=== PATIENT | male | born 1960 | race Caucasian/White ===

== ENCOUNTER 2017-03-31 22:38 | Observation (INO) | payer MEDICAID ==
[~2017-03-31] VITALS: Ht 172.7 cm; Wt 73.7 kg
[~2017-03-31 22:38] MED LIST: ASPIRIN 325MG325 MG PO; ASPIRIN 81MG TA81 MG PO; CARVEDILOL3.125 MG PO; CLARITIN 10MG T10 MG PO; EFFIENT10 M2 PO; ETODOLAC400 MG PO; LEVAQUIN500 MG PO; LIPITOR40 M1 PO; LISINOPRIL2.5 MG PO; MECLIZINE25 MG PO; NOMEDS; PERCOCET 5/3251 EACH PO; PHENERGAN 25MG.25 M1 PO; PROTONIX40 MG/PACK PO; TAMIFLU 75MG CA75 MG PO
[2017-03-31 22:40] VITALS: BP 122/56
[2017-03-31] MEDS ORDERED: BUPROPION HYDR150 M1 PO (22:48)
--- OUTSIDE RECORDS SUMMARY | 2017-03-31 22:49 | External Medical Summary Rpt ---
Demographics Preferred Language Kosovan Marital Status Unknown Zoroastrian Affiliation Unknown Race Unknown Ethnic Group Unknown Author Author SUZANNE Address Unknown Phone Immunization No patient found.
--- OUTSIDE RECORDS SUMMARY | 2017-03-31 22:49 | External Medical Summary Rpt ---
Author Author , SUZANNE PALACIOS Address Unknown Phone [email or web address] Care Team Providers Care Arch Support Technician Name Role Phone A Lui ARNOLD MD PSC, Sami Unavailable Unavailable Lui ARNOLD MD PSC [facility] Unavailable Unavailable INC, [facility] Unavailable Unavailable [facility], [facility] LESLY JR DWI, LESLY Unavailable Unavailable JR DWI [facility], Unavailable Unavailable PLL[facility], [facility] CURT ELDRIDGE, Unavailable Unavailable CURT ARNOLD BUCKY, CATALINA Unavailable Unavailable BUCKY Purpose Continuity of Care Document - 02-24-2016 through 2016 Problems Code Diagnosis DOS Provider Status K210 GASTRO-ESOP 05-14-2016 [facility] DISEASE W/ ESOPHAGITIS N200 CALCULUS OF 05-14-2016 [facility] R079 CHEST PAIN 05-14-2016 [facility] R109 UNSPECIFIED 05-14-2016 [facility] [id number] PAIN IN 05-12-2016 A Lui BAH MD PSC SHOULDER M778 OTHER 05-12-2016 A Lui ARNOLD ENTHLEILA MAURICIO PSC IES NOT ELSEWHERE CLASSIFIED [id number] PAIN IN 05-12-2016 A Lui BAH FOOT PSC R0789 OTHER CHEST 02-24-2016 [facility] [id number] FRACTURE 02-24-2016 [facility] ONE RIB [facility], RIGHT PLLC INITIAL ENCNTR CLOSED FX Procedures Procedure DOS Code Location Performer Comment UNCLASSIF J3490 [facility] IED DRUGS 6 [facility] INC INC RADIOLOGI 99042 [facility] C EXAM 6 [facility] CHEST 2 INC INC VIEWS FRONTAL&L ATERAL ECG 03124 [facility] GRACE JR ROUTINE 6 [facility] W/LEAST P 12 LDS I&[place] [address] [facility] TROPONIN 6 [facility] QUANTITAT INC INC LILLY BLOOD 45363 [facility] COUNT 6 [facility] COMPLETE INC INC AUTO&[place] [address] [facility] INFUSION 6 [facility] THERAPY/P INC INC ROPHYLAXI S /DX 1ST TO 1 HR THERAPEUT 11612 [facility] IC 6 [facility] INJECTION INC INC IV PUSH EACH NEW DRUG ECG 93252 [facility] ROUTINE 6 [facility] ECG INC INC W/LEAST 12 LDS TRCG ONLY W/O I&R CREATINE 49774 [facility] KINASE 6 [facility] [place] [address] [facility] LIPASE 6 [facility] INC INC RADEX 75230 [facility] ABDOMEN 6 [facility] COMPL INC INC W/DCBTS&/ ERC VIEWS COMPREHEN 47383 [facility] SIVE 6 [facility] [place] [address] G[facility] AMYLASE 6 [facility] INC INC CREATINE 79541 [facility] KINASE MB 6 [facility] FRACTION INC INC ONLY RADEX 91236 [facility] RIBS UNI 6 [facility] W/POSTERO INC INC ANT CH MINIMUM 3 VIEWS Encounters Encounter Start End Date Code Location Performer Type Date [facility] - 6 6 [facility] OUTPATIEN INC T EMERGENCY 86770 [facility] 6 6 [facility] DEPARTMEN INC T VISIT HIGH/URGE NT SEVERITY OFFICE 29169 Sami ARNOLD OUTPATI 6 6 [place]ALINA LAWLER T VISIT PSC 15 MINUTES EMERGENCY 23738 [facility] 6 6 [facility] DEPARTMEN INC T VISIT LOW/MODER SEVERITY EMERGENCY 63501 [facility] 6 6 PHYSICIAN U [facility] PLL[facility] T VISIT HIGH/URGE NT SEVERITY HOSPITAL [facility] - 6 6 [facility] OUTPATIEN INC T
--- OUTSIDE RECORDS SUMMARY | 2017-03-31 22:49 | External Medical Summary Rpt ---
Author Author , SUZANNE PALACIOS Address Unknown Phone [email or web address] Care Team Providers Care Manuscripts Archivist Name Role Phone A Lui ARNOLD MD PSC, A Unavailable Unavailable Lui ARNOLD MD [facility] OCASIO Unavailable Unavailable CHENTE SANTOS ALL, SANTOS ALL Unavailable Unavailable JR MARK RITTER, Unavailable Unavailable JR MARK RITTER [facility] Unavailable Unavailable INC, [facility] Unavailable Unavailable IM[facility]ING [facility], [facility] LESLY JR DWI, LESLY Unavailable Unavailable JR DWI [facility], Unavailable [facility]available PLL[facility], [facility] CURT ELDRIDGE, Unavailable Unavailable CURT ARNOLD BUCKY, CATALINA Unavailable Unavailable BUCKY Purpose Continuity of Care Document - 02-24-2016 through 2016 Problems Code Diagnosis DOS Provider Status K210 GASTRO-ESOP 05-14-2016 [facility] DISEASE W/ ESOPHAGITIS N200 CALCULUS OF 05-14-2016 [facility] R079 CHEST PAIN 05-14-2016 [facility] R109 UNSPECIFIED 05-14-2016 [facility] [id number] PAIN IN 05-12-2016 A Lui BAH MD [facility] SHOULDER M778 OTHER 05-12-2016 A Lui ARNOLD ENTHESOPATH [facility] IES NOT ELSEWHERE CLASSIFIED [id number] PAIN IN 05-12-2016 A Lui BAH FOOT [facility] R0789 OTHER CHEST 02-24-2016 [facility] [id number] FRACTURE 02-24-2016 [facility] ONE RIB [facility]YS[facility], RIGHT PLLC INITIAL ENCNTR CLOSED FX J44.9 CHRONIC OBSTRUCTIVE PULMONARY DISEASE, UNSPECIFIED K21.9 GASTRO-ESOP [facility] DISEASE WITHOUT ESOPHAGITIS R07.9 CHEST PAIN, UNSPECIFIED R91.1 SOLITARY PULMONARY NODULE S22.31XA FRACTURE OF ONE RIB, RIGHT SIDE, INIT FOR CLOS FX Z72.0 TOBACCO USE Procedures Procedure DOS Code Location Performer Comment COMPREHEN 28727 [facility] SIVE 6 [facility] [place] [address] [facility] AMYLASE 6 [facility] INC INC CREATINE 65665 [facility] KINASE MB 6 [facility] FRACTION INC INC ONLY RADEX 69178 [facility] SANTOS ALL ABDOMEN 6 MEDICAL COMPL IMAGING W/DCBTS&/ ASS ERC VIEWS CREATINE 63131 [facility] KINASE 6 [facility] [place] [address] [facility] LIPASE 6 [facility] INC INC ECG 06751 [facility] MACI[facility] ROUTINE 6 [facility] ECG INC INC W/LEAST 12 LDS TRCG ONLY W/O I&R UNCLASSIF J3490 [facility] IED DRUGS 6 [facility] [place] [address] [facility] MAC[facility] TROPONIN 6 [facility] QUANTITAT INC INC LILLY BLOOD 63310 [facility] MAC[facility] COUNT 6 [facility] COMPLETE INC INC AUTO&[place] [address] [facility] MACIAS INFUSION 6 [facility] THERAPY/P INC INC ROPHYLAXI S /DX 1ST TO 1 HR THERAPEUT 98206 [facility] IC 6 [facility] INJECTION INC INC IV PUSH EACH NEW DRUG RADIOLOGI 76794 [facility] MACIAS C EXAM 6 [facility] CHEST 2 INC INC VIEWS FRONTAL&L ATERAL ECG 37677 [facility] GRACE JR ROUTINE 6 [facility] W/LEAST P 12 LDS I&R ONLY RADEX 98328 [facility] BEINEKE RIBS UNI 6 [facility] W/POSTERO IMAGING ANT CH ASS MINIMUM 3 VIEWS Encounters Encounter Start End Date Code Location Performer Type Date EMERGENCY 64653 CHANDRA RITTER 6 6 PHYSICIAN JR MARK HANSON S, PLLC T VISIT HIGH/URGE NT SEVERITY HOSPITAL [facility] Miguel 6 6 [facility] OUTPATIEN INC T OFFICE 33592 Sami ROBISONPATICHRIS 6 6 [place] MAURICIO BUCKY T VISIT PSC 15 MINUTES [facility]OSPITAL [facility] 70268 [facility] 6 6 PHYSICIAN VALERIE HARMON T VISIT HIGH/URGE NT SEVERITY EMERGENCY 18834 [facility] 6 6 [facility] T VISIT LOW/MODER SEVERITY
--- OUTSIDE RECORDS SUMMARY | 2017-03-31 22:49 | External Medical Summary Rpt ---
Author Author , SUZANNE PALACIOS Address Unknown Phone [facility] Care Team Providers Care Finished Yarn Examiner Name Role Phone A Lui ARNOLD MD PSC, A Unavailable Unavailable Lui ARNOLD MD [facility] REMY OCASIO Unavailable Unavailable CHENTE SANTOS ALL, SANTOS ALL Unavailable Unavailable JR MARK RITTER, Unavailable Unavailable JR MARK RITTER [facility] Unavailable Unavailable INC, [facility] Unavailable Unavailable IM[facility]ING [facility], [facility] LESLY JR DWI, LESLY Unavailable Unavailable JR DWI [facility], Unavailable Unavailable PLLC, [facility] CURT ELDRIDGE, Unavailable Unavailable CURT ARNOLD BUCKY, CATALINA Unavailable Unavailable BUCKY Purpose Continuity of Care Document - 02-24-2016 through 2016 Problems Code Diagnosis DOS Provider Status K210 GASTRO-ESOP 05-14-2016 [facility] DISEASE W/ ESOPHAGITIS N200 CALCULUS OF 05-14-2016 [facility] R079 CHEST PAIN 05-14-2016 [facility] R109 UNSPECIFIED 05-14-2016 [facility] [id number] PAIN IN 05-12-2016 A Lui BAH MD [facility] SHOULDER M778 OTHER 05-12-2016 A Lui ARNOLD ENTHESOPATH [facility] IES NOT ELSEWHERE CLASSIFIED [id number] PAIN IN 05-12-2016 A Lui BAH FOOT [facility] R0789 OTHER CHEST 02-24-2016 [facility] [id number] FRACTURE 02-24-2016 [facility] ONE RIB PHYSICIANS, RIGHT PLLC INITIAL ENCNTR CLOSED FX J44.9 CHRONIC OBSTRUCTIVE PULMONARY DISEASE, UNSPECIFIED K21.9 GASTRO-ESOP [facility] RE[facility]UX DISEASE WITHOUT ESOPHAGITIS R07.9 CHEST PAIN, UNSPECIFIED R91.1 SOLITARY PULMONARY NODULE S22.31XA FRACTURE OF ONE RIB, RIGHT SIDE, INIT FOR CLOS FX Z72.0 TOBACCO USE Procedures Procedure DOS Code Location Performer Comment COMPREHEN 92887 [facility] SIVE 6 [facility] [place] [address] [facility] AMYLASE 6 [facility] INC INC CREATINE 42920 [facility] MACIAS KINASE MB 6 [facility] FRACTION INC INC ONLY RADEX 12894 [place] SANTOS ALL ABDOMEN 6 MEDICAL COMPL IMAGING W/DCBTS&/ ASS ERC VIEWS CREATINE 91546 [facility] KINASE 6 [facility] [place] [address] [facility] LIPASE 6 [facility] INC INC ECG 82863 [facility] MACIAS ROUTINE 6 [facility] ECG INC INC W/LEAST 12 LDS TRCG ONLY W/O I&R UNCLASSIF J3490 [facility] IED DRUGS 6 [facility] [place] [address] [facility] MACIAS TROPONIN 6 [facility] QUANTITAT INC INC LILLY BLOOD 80035 [facility] MACI[facility] COUNT 6 [facility] COMPLETE INC INC AUTO&[place] [address] [facility] MACIAS INFUSION 6 [facility] THERAPY/P INC INC ROPHYLAXI S /DX 1ST TO 1 HR THERAPEUT 85724 [facility] MACIAS IC 6 [facility] INJECTION INC INC IV PUSH EACH NEW DRUG RADIOLOGI 28292 [facility] MACIAS C EXAM 6 [facility] CHEST 2 INC INC VIEWS FRONTAL&L ATERAL ECG 38043 [facility] GRACE JR ROUTINE 6 [facility] W/LEAST P 12 LDS I&R ONLY RADEX 27917 [place] BEINEKE RIBS UNI 6 [facility] W/POSTERO IMAGING ANT CH ASS MINIMUM 3 VIEWS Encounters Encounter Start End Date Code Location Performer Type Date EMERGENCY 19621 CHANDRA RITTER 6 6 PHYSICIAN JR MARK HANSON S, PLLC T VISIT HIGH/URGE NT SEVERITY HOSPITAL [facility] Miguel 6 6 [facility] OUTPATIEN INC T OFFICE 88384 Sami ROBISONPATICHRIS 6 6 [place] MAURICIO BUCKY T VISIT PSC 15 MINUTES [facility]OSPITAL [facility] 20159 [facility] 6 6 PHYSICIAN VALERIE HARMON T VISIT HIGH/URGE NT SEVERITY EMERGENCY 53292 [facility] 6 6 [facility] T VISIT LOW/MODER SEVERITY
--- OUTSIDE RECORDS SUMMARY | 2017-03-31 22:49 | External Medical Summary Rpt ---
Demographics Preferred Language Nigerian Marital Status Unknown Lutheran Affiliation Unknown Race Unknown Ethnic Group Unknown Author Author SUZANNE Address Unknown Phone Immunization No patient found.
--- OUTSIDE RECORDS SUMMARY | 2017-03-31 22:49 | External Medical Summary Rpt ---
Author Author , SUZANNE PALACIOS Address Unknown Phone [email or web address] Care Team Providers Care Concrete Mixer Operator Helper Name Role Phone A Lui ARNOLD MD PSC, Sami Unavailable Unavailable Lui ARNOLD MD PSC [facility] Unavailable Unavailable INC, [facility] Unavailable Unavailable IM[facility]ING [facility], [facility] LES[facility] JR DWI, LESLY Unavailable Unavailable JR DWI [facility], Unavailable Unavailable PLL[facility], [facility] CURT ELDRIDGE, Unavailable Unavailable CURT ARNOLD BUCKY, CATALINA Unavailable Unavailable BUCKY Purpose Continuity of Care Document - 02-24-2016 through 2016 Problems Code Diagnosis DOS Provider Status K210 GASTRO-ESOP 05-14-2016 [facility] DISEASE W/ ESOPHAGITIS N200 CALCULUS OF 05-14-2016 [facility] R079 CHEST PAIN 05-14-2016 [facility] R109 UNSPECIFIED 05-14-2016 [facility] [id number] PAIN IN 05-12-2016 A Lui BAH MD [facility] SHOULDER M778 OTHER 05-12-2016 A Lui ARNOLD ENTHLEILA MAURICIO PSC IES NOT ELSEWHERE CLASSIFIED [id number] PAIN IN 05-12-2016 A Lui BAH FOOT [facility] R0789 OTHER CHEST 02-24-2016 [facility] [id number] FRACTURE 02-24-2016 [facility] ONE RIB PHYSICIANS, RIGHT PLLC INITIAL ENCNTR CLOSED FX Procedures Procedure DOS Code Location Performer Comment UNCLASSIF J3490 [facility] IED DRUGS 6 [facility] INC INC RADIOLOGI 90575 [facility] C EXAM 6 [facility] CHEST 2 INC INC VIEWS FRONTAL&L ATERAL ECG 00436 [facility] GRACE JR ROUTINE [address] [facility] W/LEAST P 12 LDS I&[place] [address] [facility] TROPONIN 6 [facility] QUANTITAT INC INC LILLY BLOOD 91895 [facility] COUNT 6 [facility] COMPLETE INC INC AUTO&[place] [address] [facility] INFUSION 6 [facility] THERAPY/P INC INC ROPHYLAXI S /DX 1ST TO 1 HR THERAPEUT 52036 [facility] IC 6 [facility] INJECTION INC INC IV PUSH EACH NEW DRUG ECG 17681 [facility] ROUTINE 6 [facility] ECG INC INC W/LEAST 12 LDS TRCG ONLY W/O I&R CREATINE 43953 [facility] KINASE 6 [facility] [place] [address] [facility] LIPASE 6 [facility] INC INC RADEX 58318 [facility] ABDOMEN 6 [facility] COMPL INC INC W/DCBTS&/ ERC VIEWS COMPREHEN 92043 [facility] SIVE 6 [facility] [place] [address] G[facility] AMYLASE 6 [facility] INC INC CREATINE 96653 [facility] KINASE MB 6 [facility] FRACTION INC INC ONLY RADEX 90494 [facility] RIBS UNI 6 [facility] W/POSTERO INC INC ANT CH MINIMUM 3 VIEWS Encounters Encounter Start End Date Code Location Performer Type Date [facility] - 6 6 [facility] OUTPATIEN INC T EMERGENCY 73839 [facility] 6 6 [facility] DEPARTMEN INC T VISIT HIGH/URGE NT SEVERITY OFFICE 82724 Sami ARNOLD OUTPATI 6 6 [place] LAWLER T VISIT PSC 15 MINUTES EMERGENCY 01486 [facility] 6 6 [facility] DEPARTMEN INC T VISIT LOW/MODER SEVERITY EMERGENCY 69735 [facility] 6 6 PHYSICIAN U [facility] T VISIT HIGH/URGE NT SEVERITY HOSPITAL [facility] - 6 6 [facility] OUTPATIEN INC T
--- OUTSIDE RECORDS SUMMARY | 2017-03-31 22:50 | External Medical Summary Rpt ---
Author Author SUZANNE Callahan, LOUISEJACOB [employer] Organization [employer] Address Unknown Phone Unavailable Results Lipid 1996 panel in Serum or Plasma Observa Value Referen Units Interpr Notes Date tion ce etation Range Cholester < 200 mg/dL No No Mar 18 ol informati informati 2016 5:40 [Moles/vo on in on in AM lume] in source source Unspecifi data data ed specimen Cholester 40 - 60 MG/DL Low No Mar 18 ol in HDL informati 2016 5:40 on in AM [Mass/vol source ume] in data Serum or Plasma Cholester 0 - 130 mg/dL Normal No Mar 18 ol in LDL informati 2016 5:40 on in AM [Mass/vol source ume] in data Serum or Plasma by ny on Triglycer 30 - 200 mg/dL Normal No Mar 18 henrry informati 2016 5:40 [Moles/vo on in AM lume] in source Serum or data Plasma Cholester 0 - 40 No Normal No Mar 18 ol in informati informati 2016 5:40 VLDL on in on in AM [Mass/vol source source ume] in data data Serum or Plasma Basic metabolic panel in Blood Observa Value Referen Units Interpr Notes Date tion ce etation Range Urea 7 - 18 mg/dL Normal No Mar 18 nitrogen informati 2016 5:40 [Mass/vol on in AM ume] in source Serum or data Plasma Calcium 8.5 - mg/dL Normal No Mar 18 [Mass/vol 10.1 informati 2016 5:40 ume] in on in AM Serum or source Plasma data Chloride 98 - 107 mmoL/L Normal No Mar 18 [Moles/vo informati 2016 5:40 lume] in on in AM Serum or source Plasma data Carbon 21.0 - mmoL/L Normal No Mar 18 dioxide, 32.0 informati 2016 5:40 total on in AM [Moles/vo source lume] in data Serum or Plasma Creatinin 0.70 - mg/dL Normal No Mar 18 e 1.30 informati 2016 5:40 [Mass/vol on in AM ume] in source Serum or data Plasma Creatinin 50 - 200 ML/MIN Normal No Mar 18 e renal informati 2016 5:40 clearance on in AM source predicted data by Cockcroft -Gault formula Estimated >60 ML/MIN No REFERENCE Mar 18 informati RANGE: 2017 5:40 glomerula on in >60 AM r source ML/MIN/1. filtratio data 73 SQUARE n rate METERSIf (GF this patient is -A merican, then multiply theresult by 1.210. Glucose 74 - 106 mg/dL Normal No Mar 18 [Mass/vol informati 2016 5:40 ume] in on in AM Serum or source Plasma data Potassium 3.5 - 5.1 mmoL/L Normal No Mar 18 informati 2016 5:40 [Moles/vo on in AM lume] in source Serum or data Plasma Sodium 136 - 145 mmoL/L Normal No Mar 18 [Moles/vo informati 2016 5:40 lume] in on in AM Serum or source Plasma data CBC W Auto Differential panel in Blood Observa Value Referen Units Interpr Notes Date tion ce etation Range Basophils 0 - 0.2 K/MM3 Normal No Mar 18 informati 2016 5:40 [#/volume on in AM ] in source Blood by data Automated count Basophils 0.1 - 2.0 % Normal No Mar 18 informati 2016 5:40 leukocyte on in AM s in source Blood by data Automated count Eosinophi 0.0 - 0.4 K/mm3 Normal No Mar 18 ls informati 2016 5:40 [#/volume on in AM ] in source Blood by data Automated count Eosinophi 0.1 - % Normal No Mar 18 ls/100 12.0 informati 2016 5:40 leukocyte on in AM s in source Blood by data Automated count Granulocy 1.3 - 8.0 K/mm3 Normal No Mar 18 evelyne informati 2016 5:40 [#/volume on in AM ] in source Blood by data Automated count Granulocy 37.0 - % Normal No Mar 18 evelyne/100 80.0 informati 2016 5:40 leukocyte on in AM s in source Blood by data Automated count Hematocri 42.0 - % Low No Mar 18 t [Volume 52.0 informati 2016 5:40 on in AM Fraction] source of Blood data Hemoglobi 14.1 - g/dL Low No Mar 18 n 18.0 informati 2016 5:40 [Mass/vol on in AM ume] in source Blood data Lymphocyt 0.7 - 4.5 K/mm3 Normal No Mar 18 es informati 2016 5:40 [#/volume on in AM ] in source Unspecifi data ed specimen by Automated count Lymphocyt 10 - 50 % Normal No Mar 18 es informati 2016 5:40 [#/volume on in AM ] in source Unspecifi data ed specimen by Automated count Erythrocy 27 - 31.2 pg Normal No Mar 18 te mean informati 2016 5:40 corpuscul on in AM ar source hemoglobi data n [Entitic mass] Erythrocy 31.8 - g/dl Normal No Mar 18 te mean 35.4 informati 2016 5:40 corpuscul on in AM ar source hemoglobi data n concentra tion [Mass/vol ume] by Automated count Erythrocy 82.2 - fl Normal No Mar 18 te mean 97.8 informati 2016 5:40 corpuscul on in AM ar volume source [Entitic data volume] by Automated count Monocytes 0.1 - 1.0 K/mm3 Normal No Mar 18 informati 2016 5:40 [#/volume on in AM ] in source Blood by data Automated count Monocytes 1.7 - 9.3 % Normal No Mar 18 /100 informati 2016 5:40 leukocyte on in AM s in source Blood by data Automated count Platelet 7.4 - fl Normal No Mar 18 mean 10.4 informati 2016 5:40 volume on in AM [Entitic source volume] data in Blood by Automated count Platelets 142 - 424 K/mm3 Normal No Mar 18 informati 2016 5:40 [#/volume on in AM ] in source Blood data Erythrocy 4.6 - 6.2 M/mm3 Low No Mar 18 evelyne informati 2016 5:40 [#/volume on in AM ] in source Amniotic data fluid Erythrocy 11.5 - % Normal No Mar 18 te 17.5 informati 2016 5:40 distribut on in AM ion width source [Entitic data volume] by Automated count Leukocyte 4.8 - K/MM3 Normal No Mar 18 s 10.8 informati 2016 5:40 [#/volume on in AM ] in source Blood data Cardiac enzymes Observa Value Referen Units Interpr Notes Date tion ce etation Range Creatine 0 - 4.0 U/L No No Mar 17 kinase.MB informati informati 2017 6:50 /Creatine on in on in PM source source kinase.to data data damaris [Ratio] in Serum or Plasma Creatine 0.0 - 3.6 ng/mL No No Mar 17 kinase.MB informati informati 2017 6:50 on in on in PM [Mass/vol source source ume] in data data Serum or Plasma Creatine 39 - 308 U/L Normal No Mar 17 kinase informati 2017 6:50 [Enzymati on in PM c source activity/ data volume] in Serum or Plasma Troponin 0.00 - ng/mL High Mar 17 I.cardiac 0.06 2016 6:50 CRITICAL PM [Mass/vol RESULTS ume] in Serum or RESU Plasma LTS CALLED TO: CALIN.BRYCE 03/17/171943 Arnoldo,[place] nda> 0.5 IS CONSISTEN T WITH MYOCARDIA L ISCHEMIA OR INFARCTIO N Activated clotting time in Blood by Coagulation assay Observa Value Referen Units Interpr Notes Date tion ce etation Range Activated 74 - 125 SEC High No Mar 17 clotting alert informati 2017 3:43 time in on in PM Blood by source Coagulati data on assay Cardiac enzymes Observa Value Referen Units Interpr Notes Date tion ce etation Range Creatine 0 - 4.0 U/L Normal No Mar 17 kinase.MB informati 2016 /Creatine on in 12:40 PM source kinase.to data damaris [Ratio] in Serum or Plasma Creatine 0.0 - 3.6 ng/mL No No Mar 17 kinase.MB informati informati 2017 on in on in 12:40 PM [Mass/vol source source ume] in data data Serum or Plasma Creatine 39 - 308 U/L Normal No Mar 17 kinase informati 2017 [Enzymati on in 12:40 PM c source activity/ data volume] in Serum or Plasma Troponin 0.00 - ng/mL High 0.04 - Mar 17 I.cardiac 0.06 0.49 IS 2017 AN 12:40 PM [Mass/vol INDETERMI ume] in NANT Serum or ZONEAnd Plasma can be consisten t with the following diseases: Trauma Criticall y ill patients Alves >30% TBSACHF Hypothyro idism Amyloidos isHyperte nsion Myocardit is SepsisHyp otension Rhabdomyo lysis Vital exhaust.P ostop surgery Pulmonary embolism CVARenal failure Acute neurologi moon disease Atrial fib. Natriutietic peptide B [Mass/volume] in Serum or Plasma Observa Value Referen Units Interpr Notes Date tion ce etation Range Natriutie 0 - 100 pg/mL Normal No Mar 17 tic informati 2016 9:25 peptide B on in AM source [Mass/vol data ume] in Serum or Plasma Creatine kinase.MB [Mass/volume] in Serum or Plasma Observa Value Referen Units Interpr Notes Date tion ce etation Range Creatine 0.0 - 3.6 ng/mL Normal No Mar 17 kinase.MB informati 2016 9:25 on in AM [Mass/vol source ume] in data Serum or Plasma Comprehensive metabolic 2000 panel in Serum or Plasma Observa Value Referen Units Interpr Notes Date tion ce etation Range Albumin/G 1.1 - 1.8 No Low No Mar 17 lobulin informati informati 2016 9:25 [Mass on in on in AM ratio] in source source Serum or data data Plasma Albumin 3.4 - 5.0 gm/dL Normal No Mar 17 [Mass/vol informati 2016 9:25 ume] in on in AM Serum or source Plasma data Alkaline 46 - 116 U/L Normal No Mar 17 phosphata informati 2016 9:25 se on in AM [Enzymati source c data activity/ volume] in Serum or Plasma Bilirubin 0.2 - 1.0 mg/dL Normal No Mar 17 .total informati 2016 9:25 [Mass/vol on in AM ume] in source Serum or data Plasma Urea 7 - 18 mg/dL Normal No Mar 17 nitrogen informati 2016 9:25 [Mass/vol on in AM ume] in source Serum or data Plasma Calcium 8.5 - mg/dL Normal No Mar 17 [Mass/vol 10.1 informati 2016 9:25 ume] in on in AM Serum or source Plasma data Chloride 98 - 107 mmoL/L Normal No Mar 17 [Moles/vo informati 2016 9:25 lume] in on in AM Serum or source Plasma data Carbon 21.0 - mmoL/L Normal No Mar 17 dioxide, 32.0 informati 2016 9:25 total on in AM [Moles/vo source lume] in data Serum or Plasma Creatinin 0.70 - mg/dL Normal No Mar 17 e 1.30 informati 2016 9:25 [Mass/vol on in AM ume] in source Serum or data Plasma Creatinin 50 - 200 ML/MIN Normal No Mar 17 e renal informati 2016 9:25 clearance on in AM source predicted data by Cockcroft -Gault formula Estimated >60 ML/MIN No REFERENCE Mar 17 informati RANGE: 2017 9:25 glomerula on in >60 AM r source ML/MIN/1. filtratio data 73 SQUARE n rate METERSIf (GF this patient is -A merican, then multiply theresult by 1.210. Globulin 1.3 - 3.2 gm/dL High No Mar 17 [Mass/vol informati 2016 9:25 ume] in on in AM Serum source data Glucose 74 - 106 mg/dL High No Mar 17 [Mass/vol informati 2016 9:25 ume] in on in AM Serum or source Plasma data Potassium 3.5 - 5.1 mmoL/L Normal No Mar 17 informati 2016 9:25 [Moles/vo on in AM lume] in source Serum or data Plasma Sodium 136 - 145 mmoL/L Normal No Mar 17 [Moles/vo informati 2016 9:25 lume] in on in AM Serum or source Plasma data Aspartate 15 - 37 U/L Low No Mar 17 informati 2016 9:25 aminotran on in AM sferase source [Enzymati data c activity/ volume] in Serum or Plasma Alanine 12 - 78 U/L Normal No Mar 17 aminotran informati 2016 9:25 sferase on in AM [Enzymati source c data activity/ volume] in Serum or Plasma Protein 6.4 - 8.2 gm/dL Normal No Mar 17 [Mass/vol informati 2016 9:25 ume] in on in AM Serum or source Plasma data Creatine kinase [Enzymatic activity/volume] in Serum or Plasma Observa Value Referen Units Interpr Notes Date tion ce etation Range Creatine 39 - 308 U/L Normal No Mar 17 kinase informati 2016 9:25 [Enzymati on in AM c source activity/ data volume] in Serum or Plasma Troponin I.cardiac [Mass/volume] in Serum or Plasma Observa Value Referen Units Interpr Notes Date tion ce etation Range Troponin 0.00 - ng/mL Normal No Mar 17 I.cardiac 0.06 informati 2016 9:25 on in AM [Mass/vol source ume] in data Serum or Plasma Fibrin D-dimer FEU [Mass/volume] in Platelet poor plasma Observa Value Referen Units Interpr Notes Date tion ce etation Range Fibrin 0 - 400 ng/mL High Mar 17 D-dimer alert NOTIFICAT 2016 9:25 FEU ION AM [Mass/vol RESULT ume] in The Platelet D-Dimer poor values plasma are presented in units of mass(ng/m L) ofD-Dimer units(DDU ).This test has been FDA approved as an aid in the assessmen tand evaluatio n of suspected DIC, and thromboem bolic eventsinc luding PE and DVT. However, it does not have approvalf or cut-off values for the exclusion of these condition s. Amylase [Enzymatic activity/volume] in Serum or Plasma Observa Value Referen Units Interpr Notes Date tion ce etation Range Amylase 25 - 115 U/L Normal No Mar 17 [Enzymati informati 2016 9:25 c on in AM activity/ source volume] data in Serum or Plasma Lipase [Enzymatic activity/volume] in Serum or Plasma Observa Value Referen Units Interpr Notes tion ce etation Range Lipase 73 - 393 U/L Normal No Mar 17 [Enzymati informati 2016 9:25 c on in AM activity/ source volume] data in Serum or Plasma CBC W Auto Differential panel in Blood Observa Value Referen Units Interpr Notes Date tion ce etation Range Basophils 0 - 0.2 K/MM3 Normal No Mar 17 informati 2016 9:25 [#/volume on in AM ] in source Blood by data Automated count Basophils 0.1 - 2.0 % Normal No Mar 17 / informati 2016 9:25 leukocyte on in AM s in source Blood by data Automated count Eosinophi 0.0 - 0.4 K/mm3 Normal No Mar 17 ls informati 2016 9:25 [#/volume on in AM ] in source Blood by data Automated count Eosinophi 0.1 - % Normal No Mar 17 ls/100 12.0 informati 2016 9:25 leukocyte on in AM s in source Blood by data Automated count Granulocy 1.3 - 8.0 K/mm3 Normal No Mar 17 evelyne informati 2017 9:25 [#/volume on in AM ] in source Blood by data Automated count Granulocy 37.0 - % Normal No Mar 17 evelyne/100 80.0 informati 2017 9:25 leukocyte on in AM s in source Blood by data Automated count Hematocri 42.0 - % Normal No Mar 17 t [Volume 52.0 informati 2017 9:25 on in AM Fraction] source of Blood data Hemoglobi 14.1 - g/dL Normal No Mar 17 n 18.0 informati 2017 9:25 [Mass/vol on in AM ume] in source Blood data Lymphocyt 0.7 - 4.5 K/mm3 Normal No Mar 17 es informati 2017 9:25 [#/volume on in AM ] in source Unspecifi data ed specimen by Automated count Lymphocyt 10 - 50 % Normal No Mar 17 es informati 2017 9:25 [#/volume on in AM ] in source Unspecifi data ed specimen by Automated count Erythrocy 27 - 31.2 pg High No Mar 17 te mean informati 2016 9:25 corpuscul on in AM ar source hemoglobi data n [Entitic mass] Erythrocy 31.8 - g/dl Normal No Mar 17 te mean 35.4 informati 2016 9:25 corpuscul on in AM ar source hemoglobi data n concentra tion [Mass/vol ume] by Automated count Erythrocy 82.2 - fl Normal No Mar 17 te mean 97.8 informati 2017 9:25 corpuscul on in AM ar volume source [Entitic data volume] by Automated count Monocytes 0.1 - 1.0 K/mm3 Normal No Mar 17 informati 2017 9:25 [#/volume on in AM ] in source Blood by data Automated count Monocytes 1.7 - 9.3 % Normal No Mar 17 informati 2017 9:25 leukocyte on in AM s in source Blood by data Automated count Platelet 7.4 - fl Normal No Mar 17 mean 10.4 informati 2017 9:25 volume on in AM [Entitic source volume] data in Blood by Automated count Platelets 142 - 424 K/mm3 Normal No Mar 17 informati 2017 9:25 [#/volume on in AM ] in source Blood data Erythrocy 4.6 - 6.2 M/mm3 Low No Mar 17 evelyne informati 2017 9:25 [#/volume on in AM ] in source Amniotic data fluid Erythrocy 11.5 - % Normal No Mar 17 te 17.5 informati 2017 9:25 distribut on in AM ion width source [Entitic data volume] by Automated count Leukocyte 4.8 - K/MM3 Normal No Mar 17 s 10.8 informati 2017 9:25 [#/volume on in AM ] in source Blood data
--- OUTSIDE RECORDS SUMMARY | 2017-03-31 22:50 | External Medical Summary Rpt ---
[...] RESU Plasma LTS CALLED TO: CALIN.BRYCE 03/17/171943 Arnoldo,[place] nda> 0.5 IS CONSISTEN T WITH MYOCARDIA [...]
[2017-03-31 22:59] LABS: HEMOGLOBIN 14.6 g/dL (14.1-18.0); LYMPH # 2.3 K/mm3 (0.7-4.5); LYMPH % 30.4 % (10-50)
--- NOTE | 2017-03-31 23:04 | Emergency Room Report ---
History of Present Illness Time Seen by [id number] Presenting Problem in Triage Pt arrived:Walked Presenting Problem:C/O LEFT SIDED CHEST PAIN SINCE 5 PM AFTER WAKING FROM [place]. HAD 7 STENTS PLACED APPROX 2 WEEKS AGO HER AT [facility]. ALSO C/O CHEST SORENESS AND SOB. DENIES N/V. 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 N Clinical Suspician of Infection? N Mental Status: 1 - Regular (Normal Baseline) Sepsis Risk:Low Sepsis Risk Have you (or family members/close friends) recently traveled outside the [place]? N If Yes, where/when: Have you had exposure to infectious disease within the past month? N TB? Other? Specify: Source patient, RN notes reviewed, old records Exam Limitations no limitations Comment pt with hx of cad with recent stents and had been doing ok but had inc pain tonight w/o syncope or palpatations Cardiac Chest Pain Chest pain indicative of cardiac Yes Timing/Duration 1-3 hours, gone now Severity/Quality moderate, indigestion Location central Chest Pain Radiation no radiation Activities at Onset light activity Nitro Today/Relief 0.4 mg x 2, provided by ED, complete relief Aspirin Treatment Today 325 mg x 1, provided by ED Beta tina treatment today no beta tina taken Cardiac risk factors + cardiovascular disease, + family history Prior Workup/Intervention stent(s) Timing/Duration this evening Severity moderate ALLERGIES Coded Allergies: No Known Allergies (05/14/16) Home Medications Active Scripts Prasugrel HCl (Effient) 10 MG PO DAILY #30 TAB Ref 11 Prov: 03/18/17 Atorvastatin Calcium (Lipitor 40MG) 80 MG PO QHS #30 TAB Ref 11 Prov: 03/18/17 Carvedilol (Carvedilol 3.125MG) 3.125 MG PO BID #60 TAB Ref 11 Prov: 03/18/17 ASPIRIN (Aspirin) 81 MG PO DAILY #30 Ref 11 Prov: 03/18/17 LISINOPRIL (Lisinopril) 2.5 MG PO DAILY #30 TAB Ref 11 Prov: 03/18/17 Reported Medications Bupropion Hcl (Bupropion HCl Sr) 150 MG PO BID #60 History Medical History General Angina: No MS: No Hypertension? No Hyperlipidemia? No CHF? No COPD? No Asthma? No CVA? No Seizures? No Diabetes? No UTI? No Stones? Yes GB Disease: No Hepatitis? No Cataracts? No Glaucoma? No MRSA? No TB? No Cancer? No Immunization Hx DT/Tetanus Unknown Flu NEVER Pneumonia Received In Past Surgical Hx Previous Surgery?Y KIDNEY STENT Family History Family Hx Diabetes Yes CAD No Hypertension Yes Hyperlipidemia Yes Cancer No TB No Social History Smoking Hx Smoker: Current Every Day Smoker Tobacco: Yes Type Cigarettes Packs/day 1 1/2 - 2 Packs Alcohol Alcohol: No Drugs none Review of Systems All Other Systems Reviewed and Negative Constitutional denies fever Eyes denies drainage ENT denies: ear discharge, epistaxis, throat pain. Respiratory denies cough, denies shortness of breath, denies wheezing Cardiovascular see HPI, chest pain, denies palpitations, denies syncope Gastrointestinal denies abdominal pain, denies diarrhea, denies vomiting Genitourinary denies: dysuria, frequency, hesitancy, hematuria. Musculoskeletal denies back pain, denies joint pain, denies joint swelling, denies neck pain Skin denies rash Psychiatric/Neurological denies headache, denies seizure Physical Exam Vital Signs Vital Signs Date Time Temp Pulse Resp B/P Pulse O2 O2 Flow FiO2 Ox Delivery Rate 03/31 2328 60 20 90/62 97 03/31 2309 66 20 107/71 93 03/31 2308 20 03/31 2308 72 20 107/70 93 03/31 2300 20 03/31 2240 64 20 122/56 98 - WBC >12,000 or <4,000 or 10% bands? 2 or more SIRS Criteria Met? B/P:96/60 MAP:78 Creatinine >2.0? UA output<0.5ml/kg/hr for 2 hrs? Platelet count >100,000? Lactate >2.0mmol/1? INR >1.2 or PTT > than 60 sec? Evidence of Organ Dysfunction? Provider documented clinical suspician of infection? N Sepsis Criteria Count: 1 Sepsis Risk: Low Sepsis Risk General Appearance no apparent distress Eye Exam - bilateral eye PERRL, bilateral eye EOMI Ear, Nose, Throat normal ENT inspection Neck supple Respiratory Status No: respiratory distress. Lung Sounds bilateral: lungs clear. Cardiovascular regular rate/rhythm, no gallop, no JVD, no rub, systolic murmur Peripheral Pulses Pulses normal Yes Gastrointestinal soft Extremities normal inspection, no calf tenderness Strength 4 Upper Ext (L), 4 Upper Ext (R), 4 Lower Ext (L), 4 Lower Ext (R) Neurologic alert, sales marketing II-XII nml as tested, no motor/sensory deficits Reflexes Reflexes normal No Mental status normal mood/affect Skin no rash cons.w/shingles Medical Decision Making LABS/Meds/Orders Pt receiving controlled substance in ED? No Results/Orders Laboratory Tests 03/31/170: Sodium 138, Potassium 4.2, Chloride 103, Carbon Dioxide 28, BUN 11, Creatinine 1.2, Estimated Creat Clear 75, Estimated GFR (MDRD) 63, Glucose 100, Calcium 8.9 , Total Bilirubin 0.4, AST 12 L, ALT 19, Alkaline Phosphatase 92, Creatine Kinase 84, CK-MB (CK-2) Rel Index 0.6, CK and CKMB Interp < 0.5, Troponin I < 0.02, Total Protein 8.4 H, Albumin 3.9, Globulin 4.5 H, Albumin/Globulin Ratio 0.9 L, WBC 7.4, RBC 4.57 L, Hgb 14.6, Hct 43.5, MCV 95.2, RDW 13.0, Plt Count 239, MPV 8.1, Gran % 61.9, Gran # 4.6, Lymphocytes % 30.4, Monocytes % 3.9, Eosinophils % 3.0, Basophils % 0.7, Lymphocytes # 2.3, Monocytes # 0.3, Eosinophils # 0.2, Basophils # 0.1, PUBS MCHC 33.6, MCH 32.0 H Current Medication Orders Sig/Lalitha Start time Last Medication Dose Route Stop Time Status Admin Nitroglycerin 0.5 IN ONCE ONE 03/31 2330 DC 03/31 TP 03/31 2331 2324 Sodium Chloride 1,000 ML .Q10H 03/31 233 AC 03/31 IV 04/01 1121 2325 Sodium Chloride 10 ML PRN PRN 03/31 2330 AC IV 04/01 2321 Sodium Chloride 1,000 ML .STK-MED ONE 03/31 2323 DC IV Nitroglycerin 0 .STK-MED ONE 03/31 2322 DC .ROUTE Aspirin 162 MG ONCE ONE 03/31 2300 DC 03/31 PO 03/31 2301 2251 Nitroglycerin 0.4 MG [id number] PRN 03/31 2300 AC 03/31 SL 2308 Sodium Chloride 10 ML PRN PRN 03/31 2300 AC IV 04/01 2250 Nitroglycerin 0 .STK-MED ONE 03/31 2259 DC SL Aspirin 0 .STK-MED ONE 03/31 224 DC .ROUTE Orders Procedure Date/time Status Decision to admit 03/31 2348 Active ELECTROCARDIOGRAM REQUEST 03/31 2250 Active CHEST(2 VIEWS-NOT PORTABLE) 03/31 2250 Active IV SALINE LOCK 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 ST/Twave chgs XRAY/CT/US XRAY/CT/US XRAY chest XR interpretation by reviewed by me Xray Results normal/NAD Departure Departure Time of Disposition 5 Disposition Still a Patient Clinical Impression Primary Impression: Chest pain Qualifiers: Chest pain type: precordial pain Qualified Code: R07.2 - Precordial pain Condition STABLE Referrals Eleazar Spencer MD discussed with dr johnson and dr spencer ED Critical Care Critical Care No at 2355
--- NOTE | 2017-03-31 23:04 | Emergency Room Report ---
History of Present Illness Time Seen by [id number] Presenting Problem in Triage Pt arrived:Walked Presenting Problem:C/O LEFT SIDED CHEST PAIN SINCE 5 PM AFTER WAKING FROM [place]. HAD 7 STENTS PLACED APPROX 2 WEEKS AGO HER AT [facility]. ALSO C/O CHEST SORENESS AND SOB. DENIES N/V. 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 N Clinical Suspician of Infection? N Mental Status: 1 - Regular (Normal Baseline) Sepsis Risk:Low Sepsis Risk Have you (or family members/close friends) recently traveled outside the [place]? N If Yes, where/when: Have you had exposure to infectious disease within the past month? N TB? Other? Specify: Source patient, RN notes reviewed, old records Exam Limitations no limitations Comment pt with hx of cad with recent stents and had been doing ok but had inc pain tonight w/o syncope or palpatations Cardiac Chest Pain Chest pain indicative of cardiac Yes Timing/Duration 1-3 hours, gone now Severity/Quality moderate, indigestion Location central Chest Pain Radiation no radiation Activities at Onset light activity Nitro Today/Relief 0.4 mg x 2, provided by ED, complete relief Aspirin Treatment Today 325 mg x 1, provided by ED Beta tina treatment today no beta tina taken Cardiac risk factors + cardiovascular disease, + family history Prior Workup/Intervention stent(s) Timing/Duration this evening Severity moderate ALLERGIES Coded Allergies: No Known Allergies (05/14/16) Home Medications Active Scripts Prasugrel HCl (Effient) 10 MG PO DAILY #30 TAB Ref 11 Prov: 03/18/17 Atorvastatin Calcium (Lipitor 40MG) 80 MG PO QHS #30 TAB Ref 11 Prov: 03/18/17 Carvedilol (Carvedilol 3.125MG) 3.125 MG PO BID #60 TAB Ref 11 Prov: 03/18/17 ASPIRIN (Aspirin) 81 MG PO DAILY #30 Ref 11 Prov: 03/18/17 LISINOPRIL (Lisinopril) 2.5 MG PO DAILY #30 TAB Ref 11 Prov: 03/18/17 Reported Medications Bupropion Hcl (Bupropion HCl Sr) 150 MG PO BID #60 History Medical History General Angina: No PR: No Hypertension? No Hyperlipidemia? No CHF? No COPD? No Asthma? No CVA? No Seizures? No Diabetes? No UTI? No Stones? Yes GB Disease: No Hepatitis? No Cataracts? No Glaucoma? No MRSA? No TB? No Cancer? No Immunization Hx DT/Tetanus Unknown Flu NEVER Pneumonia Received In Past Surgical Hx Previous Surgery?Y KIDNEY STENT Family History Family Hx Diabetes Yes CAD No Hypertension Yes Hyperlipidemia Yes Cancer No TB No Social History Smoking Hx Smoker: Current Every Day Smoker Tobacco: Yes Type Cigarettes Packs/day 1 1/2 - 2 Packs Alcohol Alcohol: No Drugs none Review of Systems All Other Systems Reviewed and Negative Constitutional denies fever Eyes denies drainage ENT denies: ear discharge, epistaxis, throat pain. Respiratory denies cough, denies shortness of breath, denies wheezing Cardiovascular see HPI, chest pain, denies palpitations, denies syncope Gastrointestinal denies abdominal pain, denies diarrhea, denies vomiting Genitourinary denies: dysuria, frequency, hesitancy, hematuria. Musculoskeletal denies back pain, denies joint pain, denies joint swelling, denies neck pain Skin denies rash Psychiatric/Neurological denies headache, denies seizure Physical Exam Vital Signs Vital Signs Date Time Temp Pulse Resp B/P Pulse O2 O2 Flow FiO2 Ox Delivery Rate 03/31 2328 60 20 90/62 97 03/31 2309 66 20 107/71 93 03/31 2308 20 03/31 2308 72 20 107/70 93 03/31 2300 20 03/31 2240 64 20 122/56 98 - WBC >12,000 or <4,000 or 10% bands? 2 or more SIRS Criteria Met? B/P:96/60 MAP:78 Creatinine >2.0? UA output<0.5ml/kg/hr for 2 hrs? Platelet count >100,000? Lactate >2.0mmol/1? INR >1.2 or PTT > than 60 sec? Evidence of Organ Dysfunction? Provider documented clinical suspician of infection? N Sepsis Criteria Count: 1 Sepsis Risk: Low Sepsis Risk General Appearance no apparent distress Eye Exam - bilateral eye PERRL, bilateral eye EOMI Ear, Nose, Throat normal ENT inspection Neck supple Respiratory Status No: respiratory distress. Lung Sounds bilateral: lungs clear. Cardiovascular regular rate/rhythm, no gallop, no JVD, no rub, systolic murmur Peripheral Pulses Pulses normal Yes Gastrointestinal soft Extremities normal inspection, no calf tenderness Strength 4 Upper Ext (L), 4 Upper Ext (R), 4 Lower Ext (L), 4 Lower Ext (R) Neurologic alert, insurance and financial services agent II-XII nml as tested, no motor/sensory deficits Reflexes Reflexes normal No Mental status normal mood/affect Skin no rash cons.w/shingles Medical Decision Making LABS/Meds/Orders Pt receiving controlled substance in ED? No Results/Orders Laboratory Tests 03/31/170: Sodium 138, Potassium 4.2, Chloride 103, Carbon Dioxide 28, BUN 11, Creatinine 1.2, Estimated Creat Clear 75, Estimated GFR (MDRD) 63, Glucose 100, Calcium 8.9 , Total Bilirubin 0.4, AST 12 L, ALT 19, Alkaline Phosphatase 92, Creatine Kinase 84, CK-MB (CK-2) Rel Index 0.6, CK and CKMB Interp < 0.5, Troponin I < 0.02, Total Protein 8.4 H, Albumin 3.9, Globulin 4.5 H, Albumin/Globulin Ratio 0.9 L, WBC 7.4, RBC 4.57 L, Hgb 14.6, Hct 43.5, MCV 95.2, RDW 13.0, Plt Count 239, MPV 8.1, Gran % 61.9, Gran # 4.6, Lymphocytes % 30.4, Monocytes % 3.9, Eosinophils % 3.0, Basophils % 0.7, Lymphocytes # 2.3, Monocytes # 0.3, Eosinophils # 0.2, Basophils # 0.1, PUBS MCHC 33.6, MCH 32.0 H Current Medication Orders Sig/Lalitha Start time Last Medication Dose Route Stop Time Status Admin Nitroglycerin 0.5 IN ONCE ONE 03/31 2330 DC 03/31 TP 03/31 2331 2324 Sodium Chloride 1,000 ML .Q10H 03/31 233 AC 03/31 IV 04/01 1121 2325 Sodium Chloride 10 ML PRN PRN 03/31 2330 AC IV 04/01 2321 Sodium Chloride 1,000 ML .STK-MED ONE 03/31 2323 DC IV Nitroglycerin 0 .STK-MED ONE 03/31 2322 DC .ROUTE Aspirin 162 MG ONCE ONE 03/31 2300 DC 03/31 PO 03/31 2301 2251 Nitroglycerin 0.4 MG [id number] PRN 03/31 2300 AC 03/31 SL 2308 Sodium Chloride 10 ML PRN PRN 03/31 2300 AC IV 04/01 2250 Nitroglycerin 0 .STK-MED ONE 03/31 2259 DC SL Aspirin 0 .STK-MED ONE 03/31 224 DC .ROUTE Orders Procedure Date/time Status Decision to admit 03/31 2348 Active ELECTROCARDIOGRAM REQUEST 03/31 2250 Active CHEST(2 VIEWS-NOT PORTABLE) 03/31 2250 Active IV SALINE LOCK 03/31 2250 Active 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 ST/Twave chgs XRAY/CT/US XRAY/CT/US XRAY chest XR interpretation by reviewed by me Xray Results normal/NAD Departure Departure Time of Disposition 5 Disposition Still a Patient Clinical Impression Primary Impression: Chest pain Qualifiers: Chest pain type: precordial pain Qualified Code: R07.2 - Precordial pain Condition STABLE Referrals Eleazar Spencer MD discussed with dr johnson and dr spencer ED Critical Care Critical Care No at 2355
[2017-03-31 23:29] LABS: BUN 11 mg/dL (7-18); GFR (ESTIMATED) 63 ML/MIN (>60)
--- OUTSIDE RECORDS SUMMARY | 2017-03-31 23:51 | External Medical Summary Rpt ---
Author Author , SUZANNE PALACIOS Address Unknown Phone [email or web address] Care Team Providers Care Coverstitch Elastic Attacher Name Role Phone A Lui ARNOLD MD [facility], A Unavailable Unavailable Lui ARNOLD MD PSC [facility] Unavailable Unavailable [facility], [facility] Un[facility] Unavailable [facility], [facility] LESLY JR DWI, LESLY Unavailable Unavailable JR DWI [facility]available [facility], [facility] CURT ELDRIDGE, Unavailable Unavailable CURT ARNOLD BUCKY, CATALINA Unavailable Unavailable BUCKY Purpose Continuity of Care Document - 02-24-2016 through 2016 Problems Code Diagnosis DOS Provider Status K210 GASTRO-ESOP 05-14-2016 [facility] DISEASE W/ ESOPHAGITIS N200 CALCULUS OF 05-14-2016 [facility] R079 CHEST PAIN 05-14-2016 [facility] R109 UNSPECIFIED 05-14-2016 [facility] [id number] PAIN IN 05-12-2016 A Lui BAH MD [facility] SHOULDER [id number] OTHER 05-12-2016 A Lui CLARK MD [facility] IES NOT ELSEWHERE CLASSIFIED [id number] PAIN IN 05-12-2016 A Lui BAH FOOT PSC [id number] OTHER CHEST 02-24-2016 [facility] [id number] FRACTURE 02-24-2016 [facility], RIGHT [...] 6 [facility] COMPREHEN 15408 [facility] SIVE 6 [facility] [place] [address] G[facility] AMYLASE 6 [facility] INC CREATINE 97883 [facility] KINASE MB 6 [facility] FRACTION INC INC ONLY RADEX 24097 [facility] ABDOMEN 6 [facility] COMPL INC INC W/DCBTS&/ ERC VIEWS ECG 52224 [facility] ROUTINE 6 [facility] ECG INC INC W/LEAST 12 LDS TRCG ONLY W/O I&R CREATINE 97491 [facility] KINASE 6 [facility] [place] [address] [facility] LIPASE 6 [place] [address] [facility] INFUSION 6 [facility] THERAPY/P INC INC ROPHYLAXI S /DX 1ST TO 1 HR THERAPEUT 55180 [facility] IC [address] [facility] INJECTION INC [place] [address] [facility] TROPONIN 6 [facility] QUANTITAT INC INC LILLY BLOOD 39603 [facility] COUNT 6 [facility] COMPLETE INC INC AUTO&AUTO DIFRNTL WBC RADIOLOGI 13504 [facility] C EXAM [address] [facility] CHEST 2 INC INC VIEWS FRONTAL&L ATERAL ECG 54769 [facility] GRACE JR ROUTINE 6 [facility] W/LEAST P 12 LDS I&R ONLY RADEX 17641 [facility] RIBS UNI 6 [facility] W/POSTERO INC INC ANT CH MINIMUM 3 VIEWS Encounters Encounter Start End Date Code Location Performer Type Date [facility] - 6 6 [facility] OUTPATIEN INC T EMERGENCY 72789 [facility] 6 6 [facility] DEPARTMEN INC T VISIT HIGH/URGE NT SEVERITY OFFICE 58050 Sami STEINER 6 6 [place] LAWLER T VISIT PSC 15 MINUTES HOSPITAL [facility] - 6 6 [facility] OUTPATIEN INC T EMERGENCY 41524 [facility] 6 6 [facility] U [facility], [facility] T VISIT HIGH/URGE NT SEVERITY EMERGENCY 59864 [facility] 6 6 [facility] T VISIT LOW/MODER SEVERITY
--- OUTSIDE RECORDS SUMMARY | 2017-03-31 23:51 | External Medical Summary Rpt ---
Author Author , SUZANNE PALACIOS Address Unknown Phone [email or web address] Care Team Providers Care Pegger Dobby Looms Name Role Phone A Lui ARNOLD MD [facility], A Unavailable Unavailable Lui ARNOLD MD PSC [facility] Unavailable Unavailable INC, [facility] Unavailable Unavailable [facility], [facility] LESLY JR DWI, LESLY Unavailable Unavailable JR DWI [facility] Unavailable [facility]available [facility], [facility] CURT ELDRIDGE, Unavailable Unavailable CURT ARNOLD BUCKY, CATALINA Unavailable Unavailable BUCKY Purpose Continuity of Care Document - 02-24-2016 through 2016 Problems Code Diagnosis DOS Provider Status K210 GASTRO-ESOP 05-14-2016 [facility] DISEASE W/ ESOPHAGITIS N200 CALCULUS OF 05-14-2016 [facility] R079 CHEST PAIN 05-14-2016 [facility] R109 UNSPECIFIED 05-14-2016 [facility] [id number] PAIN IN 05-12-2016 A Lui BAH MD [facility] SHOULDER M778 OTHER 05-12-2016 A Lui CLARK MD PSC IES NOT ELSEWHERE CLASSIFIED [id number] PAIN IN 05-12-2016 A Lui BAH FOOT PSC R0789 OTHER CHEST 02-24-2016 [facility] [id number] FRACTURE 02-24-2016 [facility], RIGHT [...] [facility] INC COMPREHEN 47165 [facility] SIVE 6 [facility] [place] [address] [facility] AMYLASE 6 [facility] INC INC CREATINE 16613 [facility] KINASE MB 6 [facility] FRACTION INC INC ONLY RADEX 77027 [facility] ABDOMEN 6 [facility] COMPL INC INC W/DCBTS&/ ERC VIEWS ECG 14189 [facility] ROUTINE 6 [facility] ECG INC INC W/LEAST 12 LDS TRCG ONLY W/O I&R CREATINE 77491 [facility] KINASE 6 [facility] [place] [address] [facility] LIPASE 6 [place] [address] [facility] INFUSION 6 [facility] THERAPY/P INC INC ROPHYLAXI S /DX 1ST TO 1 HR THERAPEUT 34281 [facility] IC 6 [facility] INJECTION INC [place] [address] [facility] TROPONIN 6 [facility] QUANTITAT INC INC LILLY BLOOD 93729 [facility] COUNT 6 [facility] COMPLETE INC INC AUTO&AUTO DIFRNTL WBC RADIOLOGI 04135 [facility] C EXAM 6 [facility] CHEST 2 INC INC VIEWS FRONTAL&L ATERAL ECG 50776 [facility] GRACE JR ROUTINE 6 [facility] W/LEAST P 12 LDS I&R ONLY RADEX 78213 [facility] RIBS UNI 6 [facility] W/POSTERO INC INC ANT CH MINIMUM 3 VIEWS Encounters Encounter Start End Date Code Location Performer Type Date [facility] - 6 6 [facility] OUTPATIEN INC T EMERGENCY 90004 [facility] 6 6 [facility] DEPARTMEN INC T VISIT HIGH/URGE NT SEVERITY OFFICE 53207 Sami STEINER 6 6 [place] LAWLER T VISIT PSC 15 MINUTES HOSPITAL [facility] - 6 6 [facility] OUTPATIEN INC T EMERGENCY 59697 [facility] [address] [facility], [facility] T VISIT HIGH/URGE NT SEVERITY EMERGENCY 56235 [facility] 6 6 [facility] T VISIT LOW/MODER SEVERITY
--- OUTSIDE RECORDS SUMMARY | 2017-03-31 23:52 | External Medical Summary Rpt ---
Author Author [employer]NE [employer], [employer] Organization [employer] Address Unknown Phone Unavailable Results CBC W Auto Differential panel in Blood Observa Value Referen Units Interpr Notes Date tion ce etation Range Basophils 0 - 0.2 K/MM3 Normal No Mar [id number] [#/volume on in 10:50 PM ] in source Blood by data Automated count Basophils 0.1 - 2.0 % Normal No Mar 312016 leukocyte on in 10:50 PM s in source Blood by data Automated count Eosinophi 0.0 - 0.4 K/mm3 Normal No Mar 31 ls 2016 [#/volume on in 10:50 PM ] in source Blood by data Automated count Eosinophi 0.1 - % Normal No Mar 31 ls/100 12.0 2016 leukocyte on in 10:50 PM s in source Blood by data Automated count Granulocy 1.3 - 8.0 K/mm3 Normal No Mar 31 evelyne 2016 [#/volume on in 10:50 PM ] in source Blood by data Automated count Granulocy 37.0 - % Normal No Mar 31 evelyne/100 80.0 2016 leukocyte on in 10:50 PM s in source Blood by data Automated count Hematocri 42.0 - % Normal No Mar 31 t [Volume 52.0 2016 on in 10:50 PM Fraction] source of Blood data Hemoglobi 14.1 - g/dL Normal No Mar 31 n 18.0 2016 [Mass/vol on in 10:50 PM ume] in source Blood data Lymphocyt 0.7 - 4.5 K/mm3 Normal No Mar 31 es 2016 [#/volume on in 10:50 PM ] in source Unspecifi data ed specimen by Automated count Lymphocyt 10 - 50 % Normal No Mar 31 es 2016 [#/volume on in 10:50 PM ] in source Unspecifi data ed specimen by Automated count Erythrocy 27 - 31.2 pg High No Mar 31 te mean 2016 corpuscul on in 10:50 PM ar source hemoglobi data n [Entitic mass] Erythrocy 31.8 - g/dl Normal No Mar 31 te mean 35.4 2016 corpuscul on in 10:50 PM ar source hemoglobi data n concentra tion [Mass/vol ume] by Automated count Erythrocy 82.2 - fl Normal No Mar 31 te mean 97.8 2016 corpuscul on in 10:50 PM ar volume source [Entitic data volume] by Automated count Monocytes 0.1 - 1.0 K/mm3 Normal No Mar 31 inform2016 [#/volume on in 10:50 PM ] in source Blood by data Automated count Monocytes 1.7 - 9.3 % Normal No Mar 312016 leukocyte on in 10:50 PM s in source Blood by data Automated count Platelet 7.4 - fl Normal No Mar 31 mean 10.4 2016 volume on in 10:50 PM [Entitic source volume] data in Blood by Automated count Platelets 142 - 424 K/mm3 Normal No Mar 312016 [#/volume on in 10:50 PM ] in source Blood data Erythrocy 4.6 - 6.2 M/mm3 Low No Mar 31 evelyne 2016 [#/volume on in 10:50 PM ] in source Amniotic data fluid Erythrocy 11.5 - % Normal No Mar 31 te 17.5 2016 distribut on in 10:50 PM ion width source [Entitic data volume] by Automated count Leukocyte 4.8 - K/MM3 Normal No Mar 31 s 10.8 2016 [#/volume on in 10:50 PM ] in source Blood data Lipid 1996 panel in Serum or Plasma Observa Value Referen Units Interpr Notes Date tion ce etation Range Cholester < 200 mg/dL No No Mar 18 ol informati informati 2016 5:40 [Moles/vo on in on in AM lume] in source source Unspecifi data data ed specimen Cholester 40 - 60 MG/DL Low No Mar 18 ol in HDL inform2016 5:40 on in AM [Mass/vol source ume] in data Serum or Plasma Cholester 0 - 130 mg/dL Normal No Mar 18 ol in LDL informati 2016 5:40 on in AM [Mass/vol source ume] in data Serum or Plasma by calculati on Triglycer 30 - 200 mg/dL Normal [...] - 2.0 % Normal No Mar 18 /100 informati [...] No No Mar 17 kinase.MB informati informati 2016 6:50 /Creatine on in on in PM source source kinase.to data data damaris [Ratio] in Serum or Plasma Creatine 0.0 - 3.6 ng/mL No No Mar 17 kinase.MB informati informati 2016 6:50 on in on in PM [Mass/vol source source ume] in data data Serum or Plasma Creatine 39 - 308 U/L Normal No Mar 17 kinase informati 2016 6:50 [Enzymati on in PM c source activity/ data volume] in Serum or Plasma Troponin 0.00 - ng/mL High Mar 17 I.cardiac 0.06 2016 6:50 CRITICAL PM [Mass/vol RESULTS ume] in Serum or RESU Plasma LTS CALLED TO: CALIN.BRYCE 03/17/171943 Arnoldo,[place] nda> 0.5 IS CONSISTEN T WITH MYOCARDIA L ISCHEMIA OR INFARCTIO N Activated clotting time in Blood by Coagulation assay Observa Value Referen Units Interpr Notes Date ti ce etation Range Activated 74 - 125 SEC High No Mar 17 clotting alert informati 2016 3:43 time in on in PM Blood [...] Normal No Mar 17 kinase informati 2016 [Enzymati on in 12:40 PM c source [...] Plasma Observa Value Referen Units Interpr Notes ti etation Range Natriutie 0 - 100 pg/mL Normal No Mar 17 tic informati 2016 9:25 peptide B on in AM source [Mass/vol data ume] in Serum or Plasma Creatine kinase.MB [Mass/volume] in Serum or Plasma Observa Value Referen Units Interpr Notes Date ti etation Range Creatine 0.0 - 3.6 ng/mL Normal No Mar 17 kinase.MB informati 2016 9:25 on in AM [Mass/vol source ume] in data Serum or Plasma Comprehensive metabolic 2000 panel in Serum or Plasma Observa Value Referen Units Interpr Notes Date ti ce etation Range Albumin/G 1.1 - 1.8 [...] Normal No Mar 17 dioxide, 32.0 informati 2017 9:25 total on in AM [Moles/vo source [...] - 37 U/L Low No Mar 17 inform2016 9:25 aminotran on in AM sferase source [Enzymati data c activity/ volume] in Serum or Plasma Alanine 12 - 78 U/L Normal No Mar 17 aminotran inform2016 9:25 sferase on in AM [Enzymati source [...] Observa Value Referen Units Interpr Notes Date ti ce etation Range Fibrin 0 - 400 ng/mL High Mar 17 D-dimer alert NOTIFICAT 2017 9:25 FEU ION AM [Mass/vol RESULT ume] [...] Interpr Notes Date tion ce etation Range Lipase 73 - [...] % Normal No Mar 17 / informati 2017 9:25 leukocyte on in AM [...] Normal No Mar 17 evelyne/100 80.0 informati 2016 9:25 leukocyte on in AM s in source Blood by data Automated count Hematocri 42.0 - % Normal No Mar 17 t [Volume 52.0 informati 2016 9:25 on in AM Fraction] source of Blood data Hemoglobi 14.1 - g/dL Normal No Mar 17 n 18.0 informati 2016 9:25 [Mass/vol on in AM ume] in source Blood data Lymphocyt 0.7 - 4.5 K/mm3 Normal No Mar 17 es informati 2016 9:25 [#/volume on in AM ] in source Unspecifi data ed specimen by Automated count Lymphocyt 10 - 50 % Normal No Mar 17 es informati 2016 9:25 [#/volume on in AM ] in source Unspecifi data ed specimen by Automated count Erythrocy 27 - 31.2 pg High No Mar 17 te mean informati 2016 9:25 corpuscul on in AM ar source hemoglobi data n [Entitic mass] Erythrocy 31.8 - g/dl Normal No Mar 17 te mean 35.4 informati 2017 9:25 corpuscul on in AM ar source hemoglobi data n concentra tion [Mass/vol ume] by Automated count Erythrocy 82.2 - fl Normal No Mar 17 te mean 97.8 informati 2016 9:25 corpuscul on in AM ar volume source [Entitic data volume] by Automated count Monocytes 0.1 - 1.0 K/mm3 Normal No Mar 17 informati 2017 9:25 [#/volume on in AM ] in source Blood by data Automated count Monocytes 1.7 - 9.3 % Normal No Mar 17 /100 informati 2017 9:25 leukocyte on in AM s in source Blood by data Automated count Platelet 7.4 - fl Normal No Mar 17 mean 10.4 informati 2016 9:25 volume on in AM [Entitic source [...] Normal No Mar 17 te 17.5 informati 2016 9:25 distribut on in AM ion width source [Entitic data volume] by Automated count Leukocyte 4.8 - K/MM3 Normal No Mar 17 s 10.8 informati 2016 9:25 [#/volume on in AM ] in source Blood data
--- OUTSIDE RECORDS SUMMARY | 2017-03-31 23:52 | External Medical Summary Rpt ---
Author Author , SUZANNE PALACIOS Address Unknown Phone [email or web address] Care Team Providers Care Colorectal Surgeon Name Role Phone A Lui ARNOLD MD PSC, Sami Unavailable Unavailable Lui ARNOLD MD PSC [facility] Unavailable Unavailable [facility], [facility] Unavailable Unavailable [facility], [facility] LESLY JR DWI, LESLY Unavailable Unavailable JR DWI [facility] Un[facility] Unavailable [facility], [facility] CURT ELDRIDGE, Unavailable Unavailable CURT ARNOLD BUCKY, CATALINA Unavailable Unavailable BUCKY Purpose Continuity of Care Document - 02-24-2016 through 2016 Problems Code Diagnosis DOS Provider Status K210 GASTRO-ESOP 05-14-2016 [facility] DISEASE W/ ESOPHAGITIS N200 CALCULUS OF 05-14-2016 [facility] R079 CHEST PAIN 05-14-2016 [facility] R109 UNSPECIFIED 05-14-2016 [facility] [id number] PAIN IN 05-12-2016 A Lui BAH MD PSC SHOULDER M778 OTHER 05-12-2016 A Lui ARNOLD ENTHLEILA MAURICIO PSC IES NOT ELSEWHERE CLASSIFIED [id number] PAIN IN 05-12-2016 A Lui BAH FOOT PSC R0789 OTHER CHEST 02-24-2016 [facility] [id number] FRACTURE 02-24-2016 [facility] RIGHT [facility] INITIAL ENCNTR CLOSED FX Procedures Procedure DOS Code Location Performer Comment UNCLASSIF J3490 [facility] IED DRUGS 6 [facility] CREATINE 81580 [facility] KINASE 6 [facility] [place] [address] [facility] LIPASE 6 [facility] INC ECG 40154 [facility] ROUTINE 6 [facility] ECG INC INC W/LEAST 12 LDS TRCG ONLY W/O I&R RADEX 00226 [facility] ABDOMEN 6 [facility] COMPL INC INC W/DCBTS&/ ERC VIEWS RADIOLOGI 32587 [facility] C EXAM 6 [facility] [place] 2 INC INC VIEWS FRONTAL&L ATERAL ECG 41356 [facility] GRACE JR ROUTINE 6 [facility] W/LEAST P 12 LDS I&[place] [address] [facility] TROPONIN 6 [facility] QUANTITAT INC INC LILLY BLOOD 70060 [facility] COUNT 6 [facility] COMPLETE INC INC AUTO&[place] [address] [facility] INFUSION 6 [facility] THERAPY/P INC INC ROPHYLAXI S /DX 1ST TO 1 HR THERAPEUT 43542 [facility] IC 6 [facility] INJECTION INC INC IV PUSH EACH NEW DRUG COMPREHEN 60121 [facility] SIVE 6 [facility] [place] [address] [facility] AMYLASE 6 [facility] INC INC CREATINE 52178 [facility] KINASE MB 6 [facility] FRACTION INC INC ONLY RADEX 90732 [facility] RIBS UNI 6 [facility] W/POSTERO INC INC ANT CH MINIMUM 3 VIEWS Encounters Encounter Start End Date Code Location Performer Type Date [facility] - 6 6 [facility]PAT[facility]EN [facility] T EMERGENCY 54462 [facility] VIS[facility] HIGH/URGE NT SEVERITY OFFICE 90759 Sami STEINER 6 6 CATALINA LAWLER T VISIT PSC 15 MINUTES EMERGENCY 19215 [facility] 6 6 [facility] T VISIT HIGH/URGE NT SEVERITY EMERGENCY 38697 [facility] 6 [facility] LOW/MODER SEVERITY HOSPITAL [facility] - 6 6 [facility] OUTPATIEN INC T
--- OUTSIDE RECORDS SUMMARY | 2017-03-31 23:52 | External Medical Summary Rpt ---
Author Author , SUZANNE PALACIOS Address Unknown Phone [email or web address] Care Team Providers Care Room Manager Name Role Phone A Lui ARNOLD MD PSC, Sami Unavailable Unavailable Lui ARNOLD MD PSC [facility] Unavailable Unavailable INC, [facility] Unavailable Unavailable [facility], [facility] LESLY JR DWI, LESLY Unavailable Unavailable JR DWI [facility], Unavailable Unavailable [facility], [facility] CURT ELDRIDGE, Unavailable Unavailable CURT ARNOLD BUCKY, CATALINA Unavailable Unavailable BUCKY Purpose Continuity of Care Document - 02-24-2016 through 2016 Problems Code Diagnosis DOS Provider Status K210 GASTRO-ESOP 05-14-2016 [facility] DISEASE W/ ESOPHAGITIS N200 CALCULUS OF 05-14-2016 [facility] R079 CHEST PAIN 05-14-2016 [facility] R109 UNSPECIFIED 05-14-2016 [facility] [id number] PAIN IN 05-12-2016 A Lui BAH MD PSC SHOULDER M778 OTHER 05-12-2016 A Lui ARNOLD ENTHLEILA MAURICIO PSC IES NOT ELSEWHERE CLASSIFIED [id number] PAIN IN 05-12-2016 A Lui BAH FOOT PSC R0789 OTHER CHEST 02-24-2016 [facility] [id number] FRACTURE 02-24-2016 [facility] RIGHT [facility] INITIAL ENCNTR CLOSED FX Procedures Procedure DOS Code Location Performer Comment UNCLASSIF J3490 [facility] IED DRUGS 6 [facility] INC CREATINE 18960 [facility] KINASE 6 [facility] [place] [address] [facility] LIPASE 6 [facility] INC ECG 02841 [facility] ROUTINE 6 [facility] ECG INC INC W/LEAST 12 LDS TRCG ONLY W/O I&R RADEX 80486 [facility] ABDOMEN 6 [facility] COMPL INC INC W/DCBTS&/ ERC VIEWS RADIOLOGI 30482 [facility] C EXAM 6 [facility] CHEST 2 INC INC VIEWS FRONTAL&L ATERAL ECG 60028 [facility] GRACE JR ROUTINE 6 [facility] W/LEAST P 12 LDS I&[place] [address] [facility] TROPONIN 6 [facility] QUANTITAT INC INC LILLY BLOOD 75364 [facility] COUNT 6 [facility] COMPLETE INC INC AUTO&[place] [address] [facility] INFUSION 6 [facility] THERAPY/P INC INC ROPHYLAXI S /DX 1ST TO 1 HR THERAPEUT 48866 [facility] IC 6 [facility] INJECTION INC INC IV PUSH EACH NEW DRUG COMPREHEN 00117 [facility] SIVE 6 [facility] [place] [address] [facility] AMYLASE 6 [facility] INC INC CREATINE 41961 [facility] KINASE MB 6 [facility] FRACTION INC INC ONLY RADEX 75631 [facility] RIBS UNI 6 [facility] W/POSTERO INC INC ANT CH MINIMUM 3 VIEWS Encounters Encounter Start End Date Code Location Performer Type Date [facility] - 6 6 [facility] OUTPATIEN INC T EMERGENCY 32821 [facility] 6 6 [facility] VISIT HIGH/URGE NT SEVERITY OFFICE 33479 Sami STEINER 6 6 CATALINA LAWLER T VISIT PSC 15 MINUTES EMERGENCY 33344 [facility]ST 6 6 [facility] T VISIT HIGH/URGE NT SEVERITY EMERGENCY 63484 [facility] 6 6 [facility] T VISIT LOW/MODER SEVERITY HOSPITAL [facility] - 6 6 [facility] OUTPATIEN INC T
--- OUTSIDE RECORDS SUMMARY | 2017-03-31 23:52 | External Medical Summary Rpt ---
Demographics Preferred Language Solomon Islander Marital Status Unknown Protestant Affiliation Unknown Race Unknown Ethnic Group Unknown Author Author SUZANNE Address Unknown Phone Immunization No patient found.
--- OUTSIDE RECORDS SUMMARY | 2017-03-31 23:52 | External Medical Summary Rpt ---
Demographics Preferred Language Malian Marital Status Unknown Mandaen Affiliation Unknown Race Unknown Ethnic Group Unknown Author Author SUZANNE Address Unknown Phone Immunization No patient found.
--- OUTSIDE RECORDS SUMMARY | 2017-03-31 23:52 | External Medical Summary Rpt ---
[...] RESU Plasma LTS CALLED TO: CALIN.BRYCE 03/17/171943 Arnoldo,Wadsworth nda> 0.5 IS CONSISTEN T WITH MYOCARDIA [...]
[2017-04-01] VITALS (15 sets, daily range): BP systolic 85–153; BP diastolic 45–71
[2017-04-01] MEDS ORDERED: HABITROL21 MG/24 H TD (01:10)
--- NOTE | 2017-04-01 07:17 | Discharge Summary Standard ---
Demographics: Admit date: 04/01/17 Chief complaint: Chest pain PRIMARY DIAGNOSIS: CHEST PAIN Allergies: Coded Allergies: No Known Allergies (05/14/16) History of present illness: History of present illness: 56-year-old male with recent hospitalization for non-ST elevation myocardial infarction with subsequent stenting 2 presented to the emergency department after awakening with sharp left-sided chest pain that waxed and waned in intensity and radiated up into the LEFT neck and jaw. This chest pain was different than the prior episode of angina that brought him to the hospital and led to his diagnosis of non-STEMI. First set of enzymes in the emergency department was negative. Workup was rather unremarkable otherwise and patient was admitted for rule out of myocardial infarction in cardiology evaluation this morning. Past medical history: Family HX Family Hx Insignificant No Diabetes Yes CAD No Hypertension Yes Hyperlipidemia Yes Cancer No TB No Immunization HX DT/Tetanus Unknown Flu NEVER Pneumonia Received In Past TB Test in last year No General Angina: No [place]: No Hypertension? No Hyperlipidemia? No CHF? No COPD? No Asthma? No Hernia? No CVA? No Seizures? No Diabetes? No UTI? No Stones? Yes GB Disease: No Nephritic Syndrome? No Asplenia? No Hepatitis? No Sickle Cell Disease? No Cataracts? No Glaucoma? No MRSA? No HIV? No TB? No Cancer? No Past Surgical HX Previous Surgery?Y KIDNEY STENT CARDIAC STENTS X 7 Current home meds: Active Scripts Prasugrel HCl (Effient) 10 MG PO DAILY #30 TAB Ref 11 Prov: 03/18/17 Atorvastatin Calcium (Lipitor 40MG) 80 MG PO QHS #30 TAB Ref 11 Prov: 03/18/17 Carvedilol (Carvedilol 3.125MG) 3.125 MG PO BID #60 TAB Ref 11 Prov: 03/18/17 ASPIRIN (Aspirin) 81 MG PO DAILY #30 Ref 11 Prov: 03/18/17 LISINOPRIL (Lisinopril) 2.5 MG PO DAILY #30 TAB Ref 11 Prov: 03/18/17 Reported Medications Nicotine (Nicotine Patch) 21 MG TD DAILY #14 Bupropion Hcl (Bupropion HCl Sr) 150 MG PO BID #60 Social Hx: Smoking HX Tobacco Yes Type Cigarettes Packs/day 1 1/2 - 2 PACKS Are you/the child exposed to second-hand smoke: Yes Alcohol Alcohol: No Hx of Drug Use Drug Use? No Review of systems: Constitutional no symptoms reported. Respiratory see HPI. Cardiovascular see HPI Gastrointestinal/Abdominal no symptoms reported Genitourinary no symptoms reported. Musculoskeletal no symptoms reported. Neurological Yes: no symptoms reported. Exam: Lab data for last 24 hours: Laboratory Tests 04/01/17 0630: Creatine Kinase 62, CK-MB (CK-2) Rel Index 0.8, CK and CKMB Interp < 0.5, Troponin I < 0.02 04/01/17 0300: Creatine Kinase 68, CK-MB (CK-2) Rel Index 0.7, CK and CKMB Interp < 0.5, Troponin I < 0.02 03/31/17 2250: Sodium 138, Potassium 4.2, Chloride 103, Carbon Dioxide 28, BUN 11, Creatinine 1.2, Estimated Creat Clear 75, Estimated GFR (MDRD) 63, Glucose 100, Calcium 8.9 , Total Bilirubin 0.4, AST 12 L, ALT 19, Alkaline Phosphatase 92, Creatine Kinase 84, CK-MB (CK-2) Rel Index 0.6, CK and CKMB Interp < 0.5, Troponin I < 0.02, Total Protein 8.4 H, Albumin 3.9, Globulin 4.5 H, Albumin/Globulin Ratio 0.9 L, WBC 7.4, RBC 4.57 L, Hgb 14.6, Hct 43.5, MCV 95.2, RDW 13.0, Plt Count 239, MPV 8.1, Gran % 61.9, Gran # 4.6, Lymphocytes % 30.4, Monocytes % 3.9, Eosinophils % 3.0, Basophils % 0.7, Lymphocytes # 2.3, Monocytes # 0.3, Eosinophils # 0.2, Basophils # 0.1, PUBS MCHC 33.6, MCH 32.0 H Hospital Course Hospital Course: Patient was admitted and ruled out for myocardial infarction with serial electrocardiogram and enzymes. Chest pain resolved after nitroglycerin in the emergency department and he had no further chest pain during hospitalization. Cardiology was consult to Medications Medications: Discharge meds are as noted.
--- NOTE | 2017-04-01 07:19 | PHARMACY CLINIC NOTE ---
Patient Demographics Patient Demographics Admission date: 04/01/17 Date: 04/01/17 Time: 07 Allergies Coded Allergies: No Known Allergies (05/14/16) HEIGHT- FT: 5 IN: 8.00 K.738 VTE General Information Labs: Laboratory Tests 03/31 2250 Hematology Hgb (14.1 - 18.0 g/dL) 14.6 Hct (42.0 - 52.0 %) 43.5 Plt Count (142 - 424 K/mm3) 239 Disclaimer The following section includes nursing documentation that has been pulled in for pharmacy review. Patient's VTE score: 2 Patient's VTE Risk: VERY LOW RISK Clinical trial participant? No VTE prophylaxis NQF [id number] VTE prophylaxis ordered? Yes Type of prophylaxis/treatment: ALBINA at 0719
--- NOTE | 2017-04-01 07:47 | RADIOLOGY REPORT PS360 ---
CHEST(2 VIEWS-NOT PORTABLE) HISTORY: Chest pain C/O CHEST PAIN ORDERING PHYSICIAN: Eleazar Sandoavl MD PATIENT AGE: 56 years COMPARISON: 03/17/2017 FINDINGS: The cardiomediastinal silhouette and pulmonary vascularity are within normal limits. The lungs are clear without infiltrates, suspicious nodules, or pleural effusions. No acute bony abnormalities. Tubular opacity noted on the lateral view overlying the antrum aspect of the heart probably related to a coronary artery stent. IMPRESSION: No acute finding
--- NOTE | 2017-04-01 07:57 | CONSULT NOTE ---
See Addendum Standard Demographics Patient Demo Date of Consultation: 04/01/17 Referring Provider: Eleazar Sandoval MD Reason for Consultation: Chest pain PRIMARY DIAGNOSIS: CHEST PAIN Problem list Problem list: 1. CAD A. NSTEMI, 02/2017 B. Cardiac cath, 02/2017, 6 MARIO placed to RCA, PDA and PLVB. Remaining Circumflex disease (70% proximal with 80% stenosis after that, 2nd OM with 70% prox stenosis in 2 mm vessel) to be treated medically. Mild to moderate LAD disease. EF 65% with LVEDP of 25 mm Hg C. Echo, 02/2017, 1. Normal left ventricular size, visually estimated ejection fraction 55% with mild inferobasal wall hypokinesis, endocardial surfaces are somewhat poorly visualized. Diastolic parameters are within normal range. Mild mitral and tricuspid regurgitation. No significant pericardial effusion noted. 2. History of GERD 3. Tobacco use History of present illness: History of present illness: 56-year-old male with recent hospitalization for non-ST elevation myocardial infarction with subsequent stenting 2 presented to the emergency department after awakening with sharp left-sided chest pain that waxed and waned in intensity and radiated up into the LEFT neck and jaw. This chest pain was different than the prior episode of angina that brought him to the hospital and led to his diagnosis of non-STEMI. First set of enzymes in the emergency department was negative. Workup was rather unremarkable otherwise and patient was admitted for rule out of myocardial infarction in cardiology evaluation this morning. The above per Dr. Sandoval. Patient relates chest soreness even after stenting that is not exacerbated by activity. Symptoms may be even worse at rest. The symptoms he had after his nap were reminiscent of his previous angina symptoms but not as severe. Symptoms improved/resolved after NTG in ER with no recurrence overnight. Troponins have returned normal and EKG is sinus and unremarkable. Pt continues to smoke despite nicotine patches started last week and states, "I may be smoking even more" since starting them. He continues to complain of dizziness and fatigue since the stents placed and starting coreg and JOSE L. BP today is in the 90's systolically. Past Medical History: General: Hypertension No CVA No Seizures No TB No COPD No Asthma No Diabetes No Angina No [place] No Hyperlipidemia No Urinary Yes Cancer No Rheumatic H.D. No Ulcers No MRSA No GB Disease No Other KIDNEY STONE X 1 Past Surgical HX: Previous Surgery?Y KIDNEY STENT CARDIAC STENTS X 7 Allergies Coded Allergies: No Known Allergies (05/14/16) Home medications: Active Scripts Prasugrel HCl (Effient) 10 MG PO DAILY #30 TAB Ref 11 Prov: 03/18/17 Atorvastatin Calcium (Lipitor 40MG) 80 MG PO QHS #30 TAB Ref 11 Prov: 03/18/17 Carvedilol (Carvedilol 3.125MG) 3.125 MG PO BID #60 TAB Ref 11 Prov: 03/18/17 ASPIRIN (Aspirin) 81 MG PO DAILY #30 Ref 11 Prov: 03/18/17 LISINOPRIL (Lisinopril) 2.5 MG PO DAILY #30 TAB Ref 11 Prov: 03/18/17 Reported Medications Nicotine (Nicotine Patch) 21 MG TD DAILY #14 Bupropion Hcl (Bupropion HCl Sr) 150 MG PO BID #60 Current Medications: Current Medications Atorvastatin Calcium 80 MG QHS PO Aspirin 81 MG DAILY PO Bupropion HCl 150 MG BID PO Carvedilol 3.125 MG BID PO Lisinopril 2.5 MG DAILY PO Prasugrel 10 MG DAILY PO Acetaminophen 650 MG Q4HP PRN PO Nicotine 21 MG DAILYP PRN TD Ondansetron HCl 4 MG Q6HP PRN IV Sodium Chloride 1,000 ML .[id number] IV Nitroglycerin 0.5 IN ONCE ONE TP (DC) Sodium Chloride 1,000 ML .Q10H IV (DC) Sodium Chloride 10 ML PRN PRN IV Sodium Chloride 1,000 ML .STK-MED ONE IV (DC) Nitroglycerin 0 .STK-MED ONE .ROUTE (DC) Aspirin 162 MG ONCE ONE PO (DC) Nitroglycerin 0.4 MG [id number] PRN SL Sodium Chloride 10 ML PRN PRN IV Nitroglycerin 0 .STK-MED ONE SL (DC) Aspirin 0 .STK-MED ONE .ROUTE (DC) Immunization HX DT/Tetanus Unknown Flu NEVER Pneumonia RECEIVED IN PAST TB Test in last year No Family history Family HX Family Hx Insignificant No Diabetes Yes CAD No Hypertension Yes Hyperlipidemia Yes Cancer No TB No Social Hx: Smoking HX Tobacco Yes Type Cigarettes Packs/day 1 1/2 - 2 PACKS Are you/the child exposed to second-hand smoke: Yes Alcohol Alcohol: No Hx of Drug Use Drug Use? No Review of systems: Constitutional weakness. Respiratory SOB with excertion. Cardiovascular see HPI, chest pain Gastrointestinal/Abdominal nausea Genitourinary No: no symptoms reported. Musculoskeletal back pain. Neurological No: no symptoms reported. Exam: Admission Vital Signs: 1ST Vital Signs Result Date Time Pulse Ox 98 03/31 2240 B/P 122/56 03/31 2240 Pulse 64 03/31 2240 Resp 20 03/31 2240 O2 Delivery ROOM AIR 04/01 35 Temp 98.1 04/01 35 Last Vital Signs: Vital Signs Result Date Time Pulse Ox 97 04/01 752 B/P 100/71 04/01 752 O2 Delivery ROOM AIR 04/01 752 Temp 98.2 04/01 752 Pulse 62 04/01 752 Resp 18 04/01 752 Exam General appearance: alert, awake, no acute distress Neck: no carotid bruit, no JVD Cardiovascular: normal sinus rhythm, regular rate & rhythm, no murmur Respiratory: clear to auscultation, good air movement ABD: soft, no tenderness Extremities: moves all, no peripheral edema Neuro: alert, intact, oriented Laboratory data: Laboratory Tests 04/01/17 0630: Creatine Kinase 62, CK-MB (CK-2) Rel Index 0.8, CK and CKMB Interp < 0.5, Troponin I < 0.02 04/01/17 0300: Creatine Kinase 68, CK-MB (CK-2) Rel Index 0.7, CK and CKMB Interp < 0.5, Troponin I < 0.02 03/31/17 2250: Sodium 138, Potassium 4.2, Chloride 103, Carbon Dioxide 28, BUN 11, Creatinine 1.2, Estimated Creat Clear 75, Estimated GFR (MDRD) 63, Glucose 100, Calcium 8.9 , Total Bilirubin 0.4, AST 12 L, ALT 19, Alkaline Phosphatase 92, Creatine Kinase 84, CK-MB (CK-2) Rel Index 0.6, CK and CKMB Interp < 0.5, Troponin I < 0.02, Total Protein 8.4 H, Albumin 3.9, Globulin 4.5 H, Albumin/Globulin Ratio 0.9 L, WBC 7.4, RBC 4.57 L, Hgb 14.6, Hct 43.5, MCV 95.2, RDW 13.0, Plt Count 239, MPV 8.1, Gran % 61.9, Gran # 4.6, Lymphocytes % 30.4, Monocytes % 3.9, Eosinophils % 3.0, Basophils % 0.7, Lymphocytes # 2.3, Monocytes # 0.3, Eosinophils # 0.2, Basophils # 0.1, PUBS MCHC 33.6, MCH 32.0 H Plan: Assessment: 1. Chest pain with concern for angina pectoris in a patient with known residual circumflex disease after recent extensive coronary artery stenting of the RIGHT coronary artery, posterior descending artery and posterior lateral ventricular branch [address] Brody. He will review the films from last month and decide on possible repeat cardiac catheterization. 2. Tobacco use, continued despite nicotine patch and Wellbutrin use. 3. Complaint of fatigue and dizziness with low blood pressure. We'll discontinue Coreg due to complaint of fatigue, weakness and low blood pressure. 4. Recent non-STEMI with mild inferior wall hypokinesis. We'll obtain an echocardiogram to follow-up on this today. Recommendations: Discussed with Dr. Brody. See above. at 1055
--- NOTE | 2017-04-01 12:32 | RADIOLOGY REPORT PS360 ---
ECHO ADULT PROCEDURE: INDICATIONS FOR THE TEST: Chest pain X COPD Heart Murmur Tobacco SmokingXX Palpitations Fatigue Syncope Edema HypertensionXDiabetes Mellitus Rheumatic Fever SOB [place] Obesity HyperlipidemiaX Family History HD Additional History CAD STENTS PATIENT INFORMATION HEIGHT: 68 WEIGHT:169 GENDER: Male B/P:100/71 2-D/M-MODE INTERPRETATION: 2-D MEASUREMENTS OBSERVED VALUES IN CMS Right Ventricular Dimension (RVDd) 2.4 Interventricular Septum (Thickness)(IVsd) 1.0 Left Ventricular Internal Dimensions(LVIDd) 5.5 Left Ventricular Posterior Wall (Thickness)(LVPWd) 1.0 Aortic Root 3.3 Aortic Cusp Separation 1.5 Left Atrial Dimensions (LAD) 2.7 2D 1. Left atrium is qualitatively mildly enlarged, left ventricle is normal size, there is no concentric left ventricular hypertrophy, visually estimated ejection fraction of 55% with no obvious regional wall motion abnormality. 2. The right atrium and right ventricle are mildly enlarged with normal contractility. 3. The aortic valve is minimally thickened and calcified leaflet continue to display good mobility. 4. The mitral and tricuspid valve is structurally normal. 5. The pulmonic valve is poorly visualized. 6. No significant pericardial effusion noted. DOPPLER INTERROGATION: Doppler interrogation of the aortic, mitral and tricuspid valve reveals presence of mild mitral and tricuspid regurgitation, tricuspid regurgitant jet velocity is insufficient for calculation of the right ventricular systolic pressure, diastolic parameters are within normal range. CONCLUSION: 1. Mild biatrial enlargement, normal left ventricular size, visually estimated ejection fraction 55% with no obvious regional wall motion abnormality, diastolic parameters are within normal range. 2. Mildly enlarged right ventricle with normal contractility. 3. Mild mitral and tricuspid regurgitation. 4. No significant pericardial effusion noted.
--- NOTE | 2017-04-01 13:22 | RADIOLOGY REPORT PS360 ---
CARDIAC CATHETERIZATION DATE OF CATHETERIZATION:04/01/2017 11:38 AM PROCEDURES: 1. Selective coronary angiogram 2. Drug-eluting stent deployment to the proximal mid circumflex artery 3. FFR to the LAD 4. Drug-eluting stent deployment to the mid LAD INDICATION FOR TEST: 1. Unstable angina 2. Known coronary artery disease 3. Recent acute myocardial infarction Informed consent was obtained prior to the procedure. COMPLICATIONS: None 56-year-old gentleman with known ischemic heart disease who recently presented less than 1 month ago with a non-ST elevation myocardial infarction and had critical disease in a large dominant right coronary artery. Patient underwent a prolonged complex revascularization involving the dominant right coronary artery. Because of the complexity with numerous stent deployment and large amounts of fluoroscopy it was decided not to intervene on the severely stenosed circumflex artery at the time and see how patient did with medical management. Yesterday patient was awakened from sleep with substernal chest pain/unstable angina. He presented to the hospital and did rule out via cardiac enzymes however he's clearly having unstable angina awakening him from sleep therefore it was decided to intervene on the circumflex artery. I reviewed the performed a few weeks ago and had determined the circumflex artery was in need of intervention. ESTIMATED BLOOD LOSS: Less than 10 ml. TECHNIQUE: One percent lidocaine was used to anesthetize the right anterior aspect of the right wrist in the right radial artery was accessed via the Seldinger technique. 5000 units of heparin was administered intra-arterially while 2000 units were administered intravenously. An arterial cocktail using verapamil and nitroglycerin was administered. The first ACT measured out of range. An [employer] left guide catheter was placed in the left main artery and a BMW wire was placed in the circumflex artery. Primary stenting could not be performed therefore 2.5 x 15 mm balloon was taken at 20 liberty to predilate. Following this a 3 mm x 26 mm resolute Bharathi stent was placed in the proximal midportion of the circumflex artery and deployed at 20 liberty. There is a residual stenosis in the proximal and mid segment therefore 3.25 x 15 mm noncompliant balloon was deployed at 20 liberty reducing the stenosis to 0%. NIKO-3 flow was present before and after the procedure. Following this the a BMW wire was left in the circumflex artery and the guide catheter was disengaged from the left main artery and an FFR wire was normalized in the ascending aorta. The guide catheter was reinserted into the left main artery and the FFR wire was placed into the mid and distal LAD. Adenosine was infused in the FFR index dropped to 0.77. Given this met hemodynamic significance a 3 mm x 18 mm resolute stent was deployed at 18 liberty reducing the hemodynamically severe stenosis to 0%. At the end of the interventional procedure the ACT measured 249 seconds therefore an additional 2000 units of heparin was administered intravenously. The sheath was removed good hemostasis was achieved using TR banding patient transferred the postop holding area in stable condition ANGIOGRAPHIC RESULTS: 1. The left main artery normal 2. The left anterior descending artery has proximal 30% stenosis with an angiographic indeterminate lesion in the mid LAD proximally 40-50% in severity. There is a large first diagonal artery which has a proximal 50-60% concentric stenosis. This is a 3 mm diagonal artery 3. The circumflex artery is a large nondominant vessel with a proximal 70% and a long tubular 80-90% stenosis. The first obtuse marginal artery is a large vessel and normal while the second obtuse marginal artery has an ostial 60% stenosis 4. The right coronary artery is dominant and has a proximal stent which is widely patent free of in-stent restenosis. The mid segment has 30 and 40% nonflow limiting stenoses. Distally the stent in the right coronary artery is widely patent and extends into the posterior lateral ventricular branch with bifurcating stent extending into the proximal posterior descending artery. The PDA and PLV stents are widely patent. Distal to the stents in the posterior lateral ventricular branch 2 sequential 50% stenoses are present 5. The BRADFORD ventriculogram reveals not performed 6. The left ventricular end-diastolic pressure not obtained IMPRESSION: 1. Recent acute non-ST elevation myocardial infarction with recurrent unstable angina 2. Angiographically severe stenosis in the proximal circumflex artery 3. Successful stenting the proximal circumflex which artery severe disease reduced to 0% with 1 drug-eluting stent postdilated with a 3.25 mm noncompliant balloon 4. Angiographically indeterminate disease in the left anterior descending artery which had severe hemodynamic compromise creating an FFR index is 0.77 5. Successful stenting the mid LAD hemodynamically severe disease reduced to 0% with 1 drug-eluting stent 6. Widely patent stents throughout the dominant right coronary artery as described above PLAN: 1. Effient and aspirin 2. LDL less than 55 3. Risk factor modification 4. Cardiac rehabilitation 5. Control of hypertension and avoidance of tobacco products
== END 2017-04-01 17:00 | disposition home or self-care (01) ==
LOC: ER 22:38 → 2ND 23:49 → ER 23:49 → 2ND 04-01 00:39
PROVIDERS: Emergency Medicine; Internal Medicine
PROC: 027135Z Dilation of Coronary Artery, Two Arteries with Two Drug-eluting Intraluminal Devices, Percutaneous Approach (ICD-10-PCS; 2017-04-01)
PROC: 4A033BC Measurement of Arterial Pressure, Coronary, Percutaneous Approach (ICD-10-PCS; 2017-04-01)
PROC: B2111ZZ Fluoroscopy of Multiple Coronary Arteries using Low Osmolar Contrast (ICD-10-PCS; principal; 2017-04-01 12:15)
DX: I23.7 Postinfarction angina (principal); I21.4 Non-ST elevation (NSTEMI) myocardial infarction; Z72.0 Tobacco use; Z95.5 Presence of coronary angioplasty implant and graft; I25.10 Atherosclerotic heart disease of native coronary artery without angina pectoris
CPT/HCPCS: C1725; C1769; C1876; G0378; J0153; J1644; Q9967

== ENCOUNTER 2017-04-13 13:55 | Emergency (ER) | payer MEDICAID ==
[~2017-04-13] VITALS: Ht 172.7 cm; Wt 74.8 kg
[~2017-04-13 13:55] MED LIST changes: +BUPROPION HYDR150 M1 PO; +HABITROL21 MG/24 H TD
--- NOTE | 2017-04-13 14:16 | Urgent Treatment Center Report ---
History of Present Issue Date/Time Seen by Provider 04/13/17 1414 Visit Reason Pt arrived:Walked Presenting Problem:COLD SORE/CRACKS TO L CORNER OF MOUTH , BEEN THERE OFF AND ON FOR 1 YR Location if Accident: Onset of symptoms date/time:04/13/16 or onset unknown for: Have you (or family members/close friends) recently traveled outside the [place]? N If Yes, where/when: Have you had exposure to infectious disease within the past month? TB? Other? Specify: c/o two concerning skin lesions. One to right side of posterior neck. First noticed approx one month ago. "just like a scab the entire time". Getting larger over the last month. Never any redness, drainage, swelling, itching. No treatment. Also c/o lesion to right side of mouth. First started around 6 month ago. "I just thought it was the lines I sometimes get in the corner of my mouth ". However, persisted and has continued to get larger. Also without redness, swelling, drainage, itching. No treatment provided. Has not discussed w/ PCP because Dr. Pedroza currently doesn't take his insurance. Working on finding a new PCP or switching to an insurance Dr. Pedroza accepts. Declines offer to provide list of providers accepting patients. Source patient Exam Limitations no limitations ALLERGIES Coded Allergies: No Known Allergies (05/14/16) Home Medications Active Scripts Prasugrel HCl (Effient) 10 MG PO DAILY #30 TAB Ref 11 Prov: 03/18/17 Atorvastatin Calcium (Lipitor 40MG) 80 MG PO QHS #30 TAB Ref 11 Prov: 03/18/17 Carvedilol (Carvedilol 3.125MG) 3.125 MG PO BID #60 TAB Ref 11 Prov: 03/18/17 ASPIRIN (Aspirin) 81 MG PO DAILY #30 Ref 11 Prov: 03/18/17 LISINOPRIL (Lisinopril) 2.5 MG PO DAILY #30 TAB Ref 11 Prov: 03/18/17 Reported Medications Nicotine (Nicotine Patch) 21 MG TD DAILY #14 Bupropion Hcl (Bupropion HCl Sr) 150 MG PO BID #60 History Medical History General CAD? Yes Angina: No GA: No Hypertension? No Hyperlipidemia? No CHF? No DVT? No PE? No COPD? No Asthma? No Anemia? No GERD? No Gastric ulcers? No GI Bleed? No Hernia? No Thyroid Problems? No Hypothyroidism? No CVA? No Seizures? No Diabetes? No Renal Insuffiency? No UTI? No Stones? Yes BPH? No GB Disease: No Nephritic Syndrome? No Asplenia? No Hepatitis? No Sickle Cell Disease? No Arthritis? No Migraines? No Cataracts? No Glaucoma? No MRSA? No HIV? No TB? No Anxiety? No Depression? No Cancer? No More? No Immunization HX DT/Tetanus Unknown Flu NEVER Pneumonia Received In Past Surgical Hx Previous Surgery?Y KIDNEY STENT CARDIAC STENTS X 7 Family History Family HX Diabetes Yes CAD No Hypertension Yes Hyperlipidemia Yes Cancer No TB No Social History Smoking Hx Smoker: Current Every Day Smoker Tobacco: Yes Type Cigarettes Packs/day 1 1/2 - 2 Packs Alcohol Alcohol: No Review of Systems All Other Systems Reviewed and Negative Constitutional denies fever, denies malaise Skin see HPI, denies change in color, denies change in hair/nails Physical Exam Vital Signs Vital Signs Date Time Temp Pulse Resp B/P Pulse O2 O2 Flow FiO2 Ox Delivery Rate 04/13 1427 98.3 63 20 142/89 98 04/13 1408 98.3 63 20 142/89 98 04/13 1359 98.3 63 20 142/89 98 General Appearance normal appearance, no apparent distress Respiratory Status No: respiratory distress. Cardiovascular no peripheral edema Neurologic alert Skin approx 0.25x1cm raised lesion right posterior neck, thurman, irregular borders; no distinct lesion but irregular skin texture and color right oral commissure Medical Decision Making LABS/Meds/Orders Pt receiving controlled substance in ED? No Departure Departure Time of Disposition 1420 Disposition DC Home or Self Care(routine) Clinical Impression Primary Impression: Skin lesion Condition STABLE Referrals AILIN HOOKS Call and schedule follow up appointment. Her [place] number is [phone] or [phone]. She does come to the [facility] on the of each month from 8a-5p. Patient Instructions Skin Cancer -- Overview Additional Instructions Both lesions are concerning. The fact they are changing is worrisome. Follow up with dermatology JESSICA unless you can get into a new primary care provider faster. Sunblock and protect your skin from sun exposure Discharge Counseling Counseled pt/family regarding diagnosis, home care, follow up needs at [phone]
[2017-04-13 14:27] VITALS: BP 142/89
== END 2017-04-13 14:28 | disposition home or self-care (01) ==
LOC: ER 13:55 → UTC 14:05 → ER 14:05 → UTC 14:28
DX: D37.09 Neoplasm of uncertain behavior of other specified sites of the oral cavity (principal); D48.5 Neoplasm of uncertain behavior of skin; Z79.899 Other long term (current) drug therapy; Z72.0 Tobacco use

== ENCOUNTER 2017-06-15 11:01 | Emergency (ER) | payer MEDICAID ==
[~2017-06-15] VITALS: Ht 172.7 cm; Wt 74.8 kg
--- NOTE | 2017-06-15 11:36 | Emergency Room Report ---
History of Present Illness Time Seen by 1130 Presenting Problem in Triage Pt arrived:Walked Presenting Problem:PT C/O PAIN ACROSS THE BACK OF HIS SHOULDERS THAT GOES UP INTO HIS NECK Onset of symptoms date/time:/ or onset unknown for:MEDICAL HX UNKNOWN Treatment Prior to Arrival: [employer] Provided by: Sepsis Risk Assessment: Temp: 97.7 B/P: 126/82 MAP: 96 Pulse: 63 Resp: 16 Recent fever? N Clinical Suspician of Infection? N Mental Status: 1 - Regular (Normal Baseline) Sepsis Risk:Low Sepsis Risk Have you (or family members/close friends) recently traveled outside the [place]? N If Yes, where/when: Have you had exposure to infectious disease within the past month? N TB? Other? Specify: Patient with muscle spasm to neck and shoulders, seems to be worse when turning his head from side to side, and pain also in shoulders with movement; no acute neurological changes; has cardiac hx and denies chest pain, denies syncope, denies palpitations; no n/v; no new SOB; no diaphoresis. Needs to see his PCP for chronic skin changes to right lower lip and reports "spot on his lung" he needs follow up on. ALLERGIES Coded Allergies: No Known Allergies (05/14/16) Home Medications Active Scripts Prasugrel HCl (Effient) 10 MG PO DAILY #30 TAB Ref 11 Prov: 03/18/17 Atorvastatin Calcium (Lipitor 40MG) 80 MG PO QHS #30 TAB Ref 11 Prov: 03/18/17 Carvedilol (Carvedilol 3.125MG) 3.125 MG PO BID #60 TAB Ref 11 Prov: 03/18/17 ASPIRIN (Aspirin) 81 MG PO DAILY #30 Ref 11 Prov: 03/18/17 LISINOPRIL (Lisinopril) 2.5 MG PO DAILY #30 TAB Ref 11 Prov: 03/18/17 History Medical History General CAD? Yes Angina: No NE: No Hypertension? No Hyperlipidemia? No CHF? No DVT? No PE? No COPD? No Asthma? No Anemia? No GERD? No Gastric ulcers? No GI Bleed? No Hernia? No Thyroid Problems? No Hypothyroidism? No CVA? No Seizures? No Diabetes? No Renal Insuffiency? No End Stage Renal Disease? No UTI? No Stones? Yes BPH? No GB Disease: No Nephritic Syndrome? No Asplenia? No Hepatitis? No Sickle Cell Disease? No Arthritis? No Migraines? No Cataracts? No Glaucoma? No MRSA? No HIV? No TB? No Anxiety? No Depression? No Cancer? No More? No Immunization Hx DT/Tetanus Unknown Flu NEVER Pneumonia Received In Past Surgical Hx Previous Surgery?Y KIDNEY STENT CARDIAC STENTS X 7 Family History Family Hx Diabetes Yes CAD No Hypertension Yes Hyperlipidemia Yes Cancer No TB No Social History Smoking Hx Smoker: Current Every Day Smoker Tobacco: Yes Type Cigarettes Packs/day 1 1/2 - 2 Packs Alcohol Alcohol: No Review of Systems All Other Systems Reviewed and Negative Respiratory denies see HPI Musculoskeletal see HPI Skin see HPI Physical Exam Vital Signs Vital Signs Date Time Temp Pulse Resp B/P Pulse O2 O2 Flow FiO2 Ox Delivery Rate 06/15 1105 97.7 63 16 126/82 98 General Appearance normal appearance, WD/WN, no apparent distress Eye Exam - bilateral eye normal exam, bilateral eye PERRL, bilateral eye EOMI Neck normal inspection, supple, full range of motion, tender lateral, spasm to trapezius B at shoulders and at insertion points; worse with movement but has FROM. Palpation reproduces his pain. Respiratory Status Yes: trachea midline, chest symmetrical, non tender chest. No: respiratory distress, tender on palpation, use of accessory muscles, pain on inspiration, pain on expiration, productive cough, non productive cough. Lung Sounds bilateral: normal breath sounds, lungs clear. Cardiovascular normal exam, regular rate/rhythm, no peripheral edema, no gallop, no JVD, no murmur, no rub, normal peripheral pulses Peripheral Pulses Pulses normal Yes Gastrointestinal normal bowel sounds, normal exam, non tender, soft, no organomegaly Extremities non-tender, normal range of motion, normal inspection, normal capillary refill, no pedal edema Strength 5 Upper Ext (L), 5 Upper Ext (R), 5 Lower Ext (L), 5 Lower Ext (R) Neurologic alert, normal exam, no motor/sensory deficits, oriented x 3 Glascow Coma Scale Glascow Coma Scale Response Value EYE response: 4 Spontaneously 4 MOTOR response: 6 OBEYS 6 VERBAL response: 5 Oriented & Converses 5 Total 15 Skin intact, normal color, warm/dry, irregularity, right lower lip; appears friable Medical Decision Making LABS/Meds/Orders Pt receiving controlled substance in ED? No Departure Departure Time of Disposition 1134 Disposition DC Home or Self Care(routine) Clinical Impression Primary Impression: Musculoskeletal neck pain Condition STABLE Referrals Yovany MAURICIO,A.C. (PCP) Patient Instructions Chronic Neck Pain Additional Instructions Moist heat, massage with golf ball, see family MD of choice for follow up for this as well as other chronic issues such as lower lip problem and "spot on lung ". No antiinflammatories due to the blood thinners you are on. Discharge Counseling Counseled pt/family regarding diagnosis, home care, follow up needs ED Critical Care Critical Care No at 1493
[2017-06-15 11:41] VITALS: BP 126/82
--- OUTSIDE RECORDS SUMMARY | 2017-06-15 11:48 | External Medical Summary Rpt | CCD ---
Author Author , SUZANNE Organization SUZANNE Address Unknown Phone [email or web address] Team Providers Care Aligner Barrel And Receiver Name Role Phone A Lui ARNOLD MD PSC, Sami Unavailable Unavailable Lui ARNOLD MD [facility] REMY OCASIO Unavailable Unavailable SARABJIT DAVIES Unavailable Unavailable SANTOS, SANTOS Unavailable Unavailable SANTOS ALL, SANTOS ALL Unavailable Unavailable JR MARK RITTER, Unavailable Unavailable JR MARK RITTER GAINEY Unavailable Unavailable [facility] Un[facility] Un[facility], [facility] Unavailable Unavailable HOSPITAL P, [facility], Unavailable Unavailable [facility] Unavailable Unavailable [facility], [facility] LESLY JR DWI, LESLY Unavailable Unavailable JR DWI TRAVIS ROBLES Unavailable Unavailable [facility], [facility], [facility] TYRESE, TYRESE Unavailable Unavailable CURT ELDRIDGE, Unavailable Unavailable CURT LAWLER, CATALINA Unavailable Unavailable BUCKY Purpose Continuity of Care Document - 02-24-2016 through 2016 Problems Code Diagnosis DOS Provider Status [id number] NEOPLASM 04-13-2017 [facility] OT INC SPEC SITES ORAL CAV D485 NEOPLASM OF 04-13-2017 [facility] BEHAVIOR OF INC SKIN Z720 TOBACCO USE 04-13-2017 [facility] INC [id number] OTHER LONG 04-13-2017 [facility] CURRENT INC DRUG THERAPY E785 HYPERLIPIDE 04-05-2017 [facility] UNSPECIFIED INC I2510 ASHD [place] 04-05-2017 [facility] ARTERY W/O INC ANGINA PECTORIS R42 DIZZINESS 04-05-2017 [facility] GIDDINESS INC I200 UNSTABLE 04-01-2017 [facility] I214 NON-ST 04-01-2017 Sami ARNOLD ELEVATION [facility] MYOCARDIAL INFARCTION I237 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 Sami ARNOLD ION ANGINA [facility] [id number] ASHD [place] 04-01-2017 [facility] COR ART PHYSICIANS W/UNSTABLE GROUP ANGINA PECTORIS R079 CHEST PAIN 04-01-2017 A Lui ARNOLD UNSPECIFIED PSC R072 PRECORDIAL 03-31-2017 [facility] Z955 PRESENCE OF 03-31-2017 [facility] P IMPLANT & GRAFT R9431 ABNORMAL 03-22-2017 [place] ELECTROCARD [facility] IOGRAM INC I209 ANGINA 03-17-2017 [facility] PECTORIS PHYSICIANS UNSPECIFIED GROUP [id number] ASHD [place] 03-17-2017 [facility] COR ARTREY PHYSICIANS W/UNS GROUP ANGINA PECTORIS J432 CENTRILOBUL 03-17-2017 [place] [facility] E[facility] R0600 DYSPNEA 03-17-2017 [place] [facility]PEC[facility] R911 SOLITARY 03-17-2017 [place] PULMONARY [facility] NODULE [facility] ASS K210 GASTRO-ESOP 05-14-2016 [facility] DISEASE W/ ESOPHAGITIS N200 CALCULUS OF 05-14-2016 [facility] R109 UNSPECIFIED 05-14-2016 [place] [facility] [id number] PAIN IN 05-12-2016 A Lui ARNOLD RIGHT PSC SHOULDER M778 OTHER 05-12-2016 A Lui ARNOLD ENTHESOPATH PSC IES NOT ELSEWHERE CLASSIFIED [id number] PAIN IN 05-12-2016 A Lui ARNOLD RIGHT FOOT PSC R0789 OTHER CHEST 02-24-2016 [place] [facility] [id number] FRACTURE 02-24-2016 [facility] RIGHT [facility] INITIAL ENCNTR CLOSED FX Allergies, Adverse Reactions, Alerts Clinical Alert Notifications Alert Member has >/= 3 hosp admit & >/= 1 ED visit in 365 days Medications Na ND Rx Da Fi Fi Am Da Di Ph RX Ph St me C No te ll ll ou ys ag ar # ys at rm s nt no ma ic us Or Da si cy ia de te s n re d AT 60 09 10 30 30 00 EA Ac OR 50 -0 -[address] ti VA 52 1- 6- [address] 67 20 20 49 DE AT 10 17 17 63 IN 9 58 PH AR 80 MA CY MG OF TA CY BL NT ET HI AN A IN C CA 00 09 10 60 30 00 EA Ac RV 09 -0 -[address] ti ED 30 1- 6- 00 00 SI ve IL 05 20 20 49 DE OL 10 17 17 63 5 59 PH 3. AR 12 MA 5 CY MG OF TA CY BL NT ET HI AN A IN C LI 00 09 10 30 30 00 EA Ac SI 18 -0 -[address] ti NO 55 1- 6- 00 00 SI ve VT 40 20 20 49 DE IL 01 17 17 65 5 0 07 PH AR MG MA CY TA BL OF ET CY NT HI AN A IN C CL 47 09 10 30 30 00 EA Ac OP 33 -0 -[address] ti ID 50 1- 6- 00 SI ve OG 89 20 20 50 DE RE 41 17 17 01 L 3 51 PH 75 AR MA MG CY TA OF BL CY ET NT HI AN A IN C BU 00 08 09 60 30 00 EA Ac VT 59 -0 -[address] ti OP 13 1- 00 SI ve IO 54 20 20 49 DE N 10 17 17 63 HC 5 60 PH L AR SR MA CY 15 0 OF MG CY NT TA HI BL AN ET A IN C CA 00 08 09 60 30 00 EA Ac RV 09 -0 -[address] ti ED 30 1- 00 SI ve IL 05 20 20 49 DE OL 10 17 17 63 5 59 PH 3. AR 12 MA 5 CY MG OF TA CY BL NT ET HI AN A IN C AT 60 08 09 30 30 00 EA Ac OR 50 -0 -[address] ti VA 52 1- - [address] 67 20 20 49 DE AT 10 17 17 63 IN 9 58 PH AR 80 MA CY MG OF TA CY BL NT ET HI AN A IN C HM 62 08 09 14 14 00 EA Ac 01 -0 -[address] ti NI 10 1- 00 SI ve CO 17 20 20 49 DE TI 30 17 17 63 NE 1 55 PH AR 21 MA CY MG /2 OF 4H CY R NT PA HI TC AN H A IN C LI 00 08 09 30 30 00 EA Ac SI 18 -0 -[address] ti NO 55 2- - 00 SI ve VT 40 20 20 49 DE IL 01 17 17 65 5 0 07 PH AR MG MA CY TA BL OF ET CY NT HI AN A IN C Procedures Procedure DOS Code Location Performer Comment ECG 52395 [facility] ROUTINE 7 [facility] ECG INC INC W/LEAST 12 LDS TRCG ONLY W/O I&R CREATINE 08-11-201 99569 [facility] KINASE 7 [facility] TOTAL INC INC CREATINE 56702 [facility] KINASE MB 7 [facility] FRACTION INC INC ONLY COAGULATI 95852 [facility] ON TIME 7 [facility] [place]OSP ACTIVATED [place] INC PRQ [address] [facility] TYRESE TRLUML 7 PHYSICIAN CORONARY S GROUP STENT W/ANGIO ONE ART/BRNCH COLLECTIO 75832 [facility] N VENOUS 7 [facility] BLOOD INC INC VENIPUNCT [facility] G0378 [facility] OBSERVATI 7 [facility]OS[facility] ON INC INC SERVICE PER HOUR OBSERVATI 86505 Sami ROBLES ON/INPATI 7 [place]INA MAURICIO ENT [facility] CARE 55 MINUTES CATHETER C1725 [facility] TRANSLUMI 7 [facility]OS[facility] NAL INC INC ANGIOPLAS TY NON-LASER GUIDE C1769 [facility] WIRE 7 [facility]OS[facility] INC INC STENT C1876 [facility] NON-COATE 7 [facility] D/NON-COV INC [place] ER[place] [address] [facility] TROPONIN 7 [facility] HOSP QUANTITAT INC INC LILLY ECHO 24434 [facility] TTHRC R-T 7 [facility] HOSP 2D INC INC W/WOM-MOD E COMPL SPEC&COLR D L HRT 48676 [facility] TYRES[facility] CATH 7 PHYSICIAN W/NJX L S GROUP VENTRICUL [place]GRAP[place] IMG S&[place] [address] [facility] TROPONIN 7 [facility] HOSP QUANTITAT INC INC LILLY BLOOD 61303 [facility] COUNT 7 [facility]OS[facility] COMPLETE INC INC AUTO&AUTO DIFRNTL WBC ECG 77968 [facility] WHIPPLE ROUTINE 7 [facility] W/LEAST P 12 LDS I&R ONLY RADIOLOGI 23585 [facility] EXAM 7 MEDICAL CHEST 2 IMAGING VIEWS ASS FRONTAL&L ATERAL COMPREHEN 04315 [facility] SIVE 7 [facility] METABOLIC INC INC PANEL CREATINE 34411 [facility] KINASE MB 7 [facility] FRACTION INC INC ONLY CREATINE 33255 [facility] KINASE 7 [facility] TOTAL INC INC ECG 69089 [facility] ROUTINE 7 [facility] ECG INC INC W/LEAST 12 LDS TRCG ONLY W/O I&R ECG 21639 [facility] ROUTINE 7 [facility] ECG INC INC W/LEAST 12 LDS TRCG ONLY W/O I&R OBSERVATI 23397 Sami ROBLES ON CARE 7 CAT[place]INA MAURICIO DISCHARGE PSC MANAGEMEN T INITIAL 36042 [facility] 7 PHYSICIAN CARE/DAY S GROUP 70 MINUTES PRQ [address]28 [place] [address] PHYSICIAN CORONARY S GROUP STENT W/ANGIO ONE ART/BRNCH RADIOLOGI 33012 [facility] 7 MEDICAL MEDICAL EXAMINATI IMAGING IMAGING ON CHEST ASS ASS [place] FRONTAL INITIAL 15475 Sami ROBLES OBSERVATI 7 CATALINA MAURICIO ON [facility] CARE/DAY [address] THORAX 21070 [facility] 7 MEDICAL W/CONTRAS IMAGING T ASS MATERIAL CATH PLMT 61990 [facility] HRT & 7 PHYSICIAN ARTS S GROUP W/NJX & ANGIO IMG S&I UNCLASSIF J3490 [facility] IED DRUGS 6 [facility] [place] [address] [facility] TROPONIN 6 [facility] QUANTITAT INC INC LILLY ECG 41802 [facility] GRACE JR ROUTINE 6 [facility] W/LEAST P 12 LDS I&R ONLY BLOOD 84366 [facility] COUNT 6 [facility] COMPLETE INC INC AUTO&AUTO DIFRNTL WBC RADEX 14333 [facility] ALL ABDOMEN 6 MEDICAL COMPL IMAGING W/DCBTS&/ ASS ERC VIEWS RADIOLOGI 28313 [facility] C EXAM 6 MEDICAL CHEST 2 IMAGING VIEWS ASS FRONTAL&L ATERAL COMPREHEN 04210 [facility] SIVE 6 [facility] [address] G[facility] AMYLASE 6 [facility] INC INC CREATINE 91471 [facility] KINASE MB 6 [facility] FRACTION INC INC ONLY ECG 23775 [facility] ROUTINE 6 [facility] ECG INC INC W/LEAST 12 LDS TRCG ONLY W/O I&R CREATINE 39637 [facility] KINASE 6 [facility] [place] [address] [facility] LIPASE 6 [place] [address] [facility] INFUSION 6 [facility] THERAPY/P INC INC ROPHYLAXI S /DX 1ST TO 1 HR THERAPEUT 13232 [facility] IC 6 [facility] INJECTION INC INC IV PUSH EACH NEW DRUG RADEX 63740 [facility] BEINEKE RIBS UNI 6 MEDICAL CHENTE W/POSTERO IMAGING ANT CH ASS MINIMUM 3 VIEWS Encounters Encounter Start End Date Code Location Performer Type Date OFFICE 28568 [facility] 7 7 [facility] T VISIT 5 INC MINUTES [facility]OSPITAL [facility] - 7 7 [facility]PATI[facility] - 7 7 [facility] - 7 7 [facility] OUTPATIEN [facility] T EMERGENCY 35486 [facility] ROSARIO DEPT 7 7 PHYSICIAN VISIT S, [facility] HIGH [facility]VERITY& THREAT [facility] H[facility] - 7 7 [facility] OUTPATIEN [facility] T EMERGENCY 16788 CHANDRA RITTER 6 6 PHYSICIAN JR MARK HANSON S, [facility] T VISIT HIGH/URGE NT SEVERITY [facility]OSPITAL [facility] - 6 6 [facility] OUTPATIEN [facility] T OFFICE 96956 Sami STEINER 6 6 CATALINA LAWLER T VISIT PSC 15 MINUTES HOSPITAL [facility] - 6 6 [facility] OUTPATIEN INC T EMERGENCY 58482 [facility] 6 6 [facility] DEPARTMEN INC T VISIT LOW/MODER SEVERITY EMERGENCY 35271 [facility] 6 6 PHYSICIAN U [facility] S, [facility] T VISIT HIGH/URGE NT SEVERITY
--- OUTSIDE RECORDS SUMMARY | 2017-06-15 11:48 | External Medical Summary Rpt | CCD ---
Author Author , SUZANNE Organization SUZANNE Address Unknown Phone [email or web address] [employer] Care Team Providers Care Uppers Edge Burnisher Name Role Phone A Lui ARNOLD MD PSC, Sami Unavailable Unavailable Lui ARNOLD MD [facility] REMY OCASIO Unavailable Unavailable SARABJIT DAVIES Unavailable Unavailable SANTOS, SANTOS Unavailable Unavailable SANTOS ALL, SANTOS ALL Unavailable Unavailable JR MARK RITTER, Unavailable Unavailable JR MARK RITTER GAINEY Unavailable Unavailable [facility] Unavailable Unavailable INC, [facility] Unavailable [facility]available HOSPITAL P, [facility], Unavailable [facility]available [facility] Unavailable Unavailable [facility] LES[facility] JR DWI, LESLY Unavailable [...] TOBACCO USE 04-13-2017 [facility] INC [id number] OTHER LONG 04-13-2017 [facility] CURRENT INC DRUG THERAPY E785 HYPERLIPIDE 04-05-2017 [facility] UNSPECIFIED INC I2510 ASHD [place] 04-05-2017 [facility] ARTERY W/O INC ANGINA PECTORIS R42 DIZZINESS 04-05-2017 [facility] GIDDINESS INC I200 UNSTABLE 04-01-2017 [facility] I214 NON-ST 04-01-2017 Sami ARNOLD ELEVATION [facility] MYOCARDIAL INFARCTION I237 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 Sami ARNOLD ION ANGINA [facility] [id number] ASHD [place] 04-01-2017 [facility] COR ART PHYSICIANS W/UNSTABLE GROUP ANGINA PECTORIS R079 CHEST PAIN 04-01-2017 A Lui ARNOLD UNSPECIFIED PSC R072 PRECORDIAL 03-31-2017 [facility] Z955 PRESENCE OF 03-31-2017 [facility] P IMPLANT & GRAFT R9431 ABNORMAL 03-22-2017 [place] ELECTROCARD [facility] IOGRAM INC I209 ANGINA 03-17-2017 [facility] PECTORIS PHYSICIANS UNSPECIFIED GROUP [id number] ASHD [place] 03-17-2017 [facility] COR ARTREY PHYSICIANS W/UNS GROUP ANGINA PECTORIS J432 CENTRILOBUL 03-17-2017 [place] [facility] R0600 DYSPNEA 03-17-2017 [place] [facility]PEC[facility] R911 SOLITARY 03-17-2017 [place] PUL[facility] NODULE [facility] K210 GASTRO-ESOP 05-14-2016 [facility] DISEASE W/ ESOPHAGITIS N200 CALCULUS OF 05-14-2016 [facility] [facility] R109 UNSPECIFIED 05-14-2016 [place] [facility] [id number] PAIN IN 05-12-2016 A Lui ARNOLD RIGHT PSC SHOULDER M778 OTHER 05-12-2016 A Lui ARNOLD ENTHESOPATH PSC IES NOT ELSEWHERE CLASSIFIED [id number] PAIN IN 05-12-2016 A Lui ARNOLD RIGHT FOOT PSC R0789 OTHER CHEST 02-24-2016 [place] [facility] [id number] FRACTURE 02-24-2016 [facility], RIGHT [...] 55 1- 6- 00 00 SI ve AR 40 20 20 49 DE IL 01 [...] 08 09 60 30 00 EA Ac AR 59 -0 -[address] ti [...] NO 55 2- - 00 SI ve AR 40 20 20 49 DE [place] 01 17 17 65 5 0 07 PH AR MG MA CY TA BL OF ET CY NT HI AN A IN C Procedures Procedure DOS Code Location Performer Comment ECG 89124 [facility] ROUTINE 7 [facility] ECG INC INC W/LEAST 12 LDS TRCG ONLY W/O I&R CREATINE 08-11-201 58034 [facility] KINASE 7 [facility] TOTAL INC INC CREATINE 05516 [facility] KINASE MB 7 [facility] FRACTION INC INC ONLY COAGULATI 76837 [facility] ON TIME 7 [facility] ACTIVATED [place] PRQ [address]53 [facility] TYRESE TRLUML 7 PHYSICIAN CORONARY S GROUP STENT W/ANGIO ONE ART/BRNCH COLLECTIO 47711 [facility] N VENOUS 7 [facility] BLOOD INC INC VENIPUNCT [facility] G0378 [facility] OBSERVATI 7 [facility] ON INC INC SERVICE PER HOUR OBSERVATI 54197 Sami ROBLES ON/INPATI 7 [place] MAURICIO ENT [facility] CARE 55 MINUTES CATHETER C1725 [facility] TRANSLUMI 7 [facility] NAL INC INC ANGIOPLAS TY NON-LASER GUIDE C1769 [facility] WIRE 7 [facility] INC INC STENT C1876 [facility] NON-COATE 7 [facility] D/NON-COV INC [place] [address] [facility] TROPONIN 7 [facility] QUANTITAT INC INC LILLY ECHO 47028 [facility] TTHRC R-T 7 [facility] 2D INC INC W/WOM-MOD E COMPL SPEC&COLR D L HRT 81395 [facility] TYRESE CATH 7 PHYSICIAN W/NJX L S GROUP VENTRICUL [place]GRAP[place] IMG S&[place] [address] [facility] TROPONIN 7 [facility] QUANTITAT INC INC LILLY BLOOD 55235 [facility] COUNT 7 [facility] COMPLETE INC INC AUTO&AUTO DIFRNTL WBC ECG 99682 [facility] WHIPPLE ROUTINE 7 [facility] W/LEAST P 12 LDS I&R ONLY RADIOLOGI 47772 [facility] C EXAM 7 MEDICAL CHEST 2 IMAGING VIEWS ASS FRONTAL&L ATERAL COMPREHEN 62964 [facility] SIVE 7 [facility] METABOLIC INC INC PANEL CREATINE 53229 [facility] KINASE MB 7 [facility] FRACTION INC INC ONLY CREATINE 37722 [facility] KINASE 7 [facility] TOTAL INC INC ECG 18378 [facility] ROUTINE 7 [facility] ECG INC INC W/LEAST 12 LDS TRCG ONLY W/O I&R ECG 91269 [facility] ROUTINE 7 [facility] ECG INC INC W/LEAST 12 LDS TRCG ONLY W/O I&R OBSERVATI 35877 Sami ROBLES ON CARE 7 [place] MAURICIO DISCHARGE PSC MANAGEMEN T INITIAL 81304 [facility] 7 PHYSICIAN CARE/DAY S GROUP 70 MINUTES PRQ [address]15 [place] [address] PHYSICIAN CORONARY S GROUP STENT W/ANGIO ONE ART/BRNCH RADIOLOGI 76092 [facility] 7 MEDICAL MEDICAL EXAMINATI IMAGING IMAGING ON CHEST ASS ASS [place] FRONTAL INITIAL 22953 Sami ROBLES OBSERVATI 7 [place] MAURICIO ON [facility] CARE/DAY [address] THORAX 72557 [facility] 7 MEDICAL W/CONTRAS IMAGING T ASS MATERIAL CATH PLMT 02991 [facility] HRT & 7 PHYSICIAN ARTS S GROUP W/NJX & ANGIO IMG S&I UNCLASSIF J3490 [facility] IED DRUGS 6 [facility] [place] [address] [facility] TROPONIN 6 [facility] QUANTITAT INC INC LILLY ECG 11912 [facility] JR ROUTINE 6 [facility] W/LEAST P 12 LDS I&R ONLY BLOOD 35096 [facility] COUNT 6 [facility] COMPLETE INC INC AUTO&AUTO DIFRNTL WBC RADEX 86992 [facility] ALL ABDOMEN 6 MEDICAL COMPL IMAGING W/DCBTS&/ ASS ERC VIEWS RADIOLOGI 76881 [facility] ALL C EXAM 6 MEDICAL CHEST 2 IMAGING VIEWS ASS FRONTAL&L ATERAL COMPREHEN 02287 [facility] SIVE 6 [facility] [address] G[facility] AMYLASE 6 [facility] INC INC CREATINE 17836 [facility] KINASE MB 6 [facility] FRACTION INC INC ONLY ECG 38141 [facility] ROUTINE 6 [facility] ECG INC INC W/LEAST 12 LDS TRCG ONLY W/O I&R CREATINE 44134 [facility] KINASE 6 [facility] [place] [address] [facility] LIPASE 6 [place] [address] [facility] INFUSION 6 [facility] THERAPY/P INC INC ROPHYLAXI S /DX 1ST TO 1 HR THERAPEUT 44303 [facility] IC 6 [facility] INJECTION INC INC IV PUSH EACH NEW DRUG RADEX 43864 [facility] BEINEKE RIBS UNI 6 MEDICAL CHENTE W/POSTERO IMAGING ANT CH ASS MINIMUM 3 VIEWS Encounters Encounter Start End Date Code Location Performer Type Date OFFICE 84375 [facility] 7 7 [facility] T VISIT 5 INC MINUTES [facility]OSPITAL [facility] - 7 7 [facility] - 7 7 [facility] - 7 7 [facility] OUTPATIEN [facility] T EMERGENCY 33685 CHANDRA ROSARIO DEPT 7 7 PHYSICIAN VISIT S, [facility] HIGH SEVERITY& THREAT [facility] - 7 7 [facility] OUTPATIEN [facility] T EMERGENCY 87330 CHANDRA RITTER 6 6 PHYSICIAN JR MARK HANSON S, [facility] T VISIT HIGH/URGE NT SEVERITY [facility]OSPITAL [facility] - 6 6 [facility] OUTPATIEN [facility] T OFFICE 54186 Sami STEINER 6 6 CATALINA LAWLER T VISIT PSC 15 MINUTES HOSPITAL [facility] - 6 6 [facility] OUTPATIEN INC T EMERGENCY 49926 [facility] 6 6 [facility] DEPARTMEN INC T VISIT LOW/MODER SEVERITY EMERGENCY 77488 [facility] 6 6 [facility], [facility] T VISIT HIGH/URGE NT SEVERITY
--- OUTSIDE RECORDS SUMMARY | 2017-06-15 11:50 | External Medical Summary Rpt | CCD ---
Demographics Preferred Language Maori Marital Status Unknown Christianity Affiliation Unknown Race Unknown Ethnic Group Unknown Author Author , SUZANNE PALACIOS Address Unknown Phone Immunization No patient found.
--- OUTSIDE RECORDS SUMMARY | 2017-06-15 11:50 | External Medical Summary Rpt | CCD ---
Author Author , SUZANNE Riki SUZANNE Address Unknown Phone [email or web address] Care Team Providers Care Nail Feeder Name Role Phone A Lui ARNOLD MD PSC, Sami Unavailable Unavailable Lui ARNOLD MD [facility] SARABJIT WHIPPLE Unavailable Unavailable SANTOS, SANTOS Unavailable Unavailable [facility] Un[facility] Unavailable [facility], [facility] Unavailable Unavailable HOSPITAL P, [facility]PITAL P [facility], Unavailable Unavailable [facility] Unavailable Unavailable [facility], [facility] LESLY DWI, LESLY Unavailable Unavailable JR DWI TRAVIS ROBLES Unavailable Unavailable [facility], Unavailable Unavailable PLLC, [facility], [facility] TYRESE, TYRESE Unavailable Unavailable CURT ELDRIDGE, Unavailable Unavailable CURT WOLFD, CATALINA Unavailable Unavailable BUCKY Purpose Continuity of Care Document - 02-24-2016 through 2016 Problems Code Diagnosis DOS Provider Status D3709 NEOPLASM 04-13-2017 [facility] V OT INC SPEC SITES ORAL CAV D485 NEOPLASM OF 04-13-2017 [facility] BEHAVIOR OF INC SKIN Z720 TOBACCO USE 04-13-2017 [facility] INC [id number] OTHER LONG 04-13-2017 [facility]M [facility] CURRENT INC DRUG THERAPY E785 HYPERLIPIDE 04-05-2017 [facility] UNSPECIFIED INC I2510 ASHD YAVAPAI-APACHE 04-05-2017 [facility]ARY [facility] ARTERY W/O INC ANGINA PECTORIS R42 DIZZINESS 04-05-2017 [facility] GIDDINESS INC I200 UNSTABLE 04-01-2017 [facility] ANGINA [facility] GROUP I214 NON-ST 04-01-2017 Sami ARNOLD ELEVATION [facility] MYOCARDIAL INFARCTION I237 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 Sami ARNOLD ION ANGINA [facility] [id number] ASHD YAVAPAI-APACHE 04-01-2017 [facility] COR ART PHYSICIANS W/UNSTABLE GROUP ANGINA PECTORIS R079 CHEST PAIN 04-01-2017 Sami BARBOZA MD [facility] R072 PRECORDIAL 03-31-2017 [facility] PAIN PHYSICIANS, [facility] Z955 PRESENCE OF 03-31-2017 [facility] CORONARY [facility] P IMPLANT & GRAFT R9431 ABNORMAL 03-22-2017 [facility]ROCARD [facility] IOGRAM INC I209 ANGINA 03-17-2017 [facility] PECTORIS PHYSICIANS UNSPECIFIED GROUP [id number] ASHD YAVAPAI-APACHE 03-17-2017 [facility] COR ARTREY PHYSICIANS W/UNS GROUP ANGINA PECTORIS J432 CENTRILOBUL 03-17-2017 [facility] E[facility]HY[facility] R0600 DYSPNEA 03-17-2017 [facility] R911 SOLITARY 03-17-2017 [facility] N[facility] K210 GASTRO-ESOP 05-14-2016 [facility] DISEASE W/ ESOPHAGITIS N200 CALCULUS OF 05-14-2016 [facility] R109 UNSPECIFIED 05-14-2016 [facility] [id number] PAIN IN 05-12-2016 A Lui BAH MD P[facility] SHOULDER M778 OTHER 05-12-2016 A Lui ARNOLD ENTHESOPATH PSC IES NOT ELSEWHERE CLASSIFIED [id number] PAIN IN 05-12-2016 A Lui ARNOLD RIGHT FOOT PSC R0789 OTHER CHEST 02-24-2016 [facility] [id number] FRACTURE 02-24-2016 [facility] ONE RIB PHYSIC[facility], RIGHT PLLC INITIAL ENCNTR CLOSED FX Medications Na ND Rx Da Fi Fi [...] ST ti ID 50 1- 6- 00 00 SI ve OG 89 20 20 50 DE RE 41 17 17 01 L 3 51 PH 75 AR MA MG CY TA OF BL CY ET NT HI AN A IN C BU 00 08 09 60 30 00 EA Ac AR 59 -0 -[address] ti OP 13 1- 1- 00 00 SI ve IO 54 20 20 49 DE N 10 17 17 63 HC 5 60 PH L AR SR MA CY 15 0 OF MG CY NT TA HI BL AN ET A IN C CA 00 08 09 60 30 00 EA Ac RV 09 -0 -[address] ti ED 30 1- 1- 00 00 SI ve IL 05 20 20 49 DE OL 10 17 17 63 5 59 PH 3. AR 12 MA 5 CY MG OF TA CY BL NT ET HI AN A IN C AT 60 08 09 30 30 00 EA Ac OR 50 -0 -[address] ti VA 52 1- 1- [address] 67 20 20 49 DE AT 10 17 17 63 IN 9 58 PH AR 80 MA CY MG OF TA CY BL NT ET HI AN A IN C HM 62 08 09 14 14 00 EA Ac 01 -0 -[address] ti NI 10 1- 1- 00 00 SI ve CO 17 20 20 49 DE TI 30 17 17 63 NE 1 55 PH AR 21 MA CY MG /2 OF 4H CY R NT PA HI TC AN H A IN C LI 00 08 09 30 30 00 EA Ac SI 18 -0 -[address] ti NO 55 2- 1- 00 00 SI ve AR 40 20 20 49 DE IL 01 17 17 65 5 0 07 PH AR MG MA CY TA BL OF ET CY NT HI AN A IN C Procedures Procedure DOS Code Location Performer Comment ECG 74997 [facility] ROUTINE 7 [facility] ECG INC INC W/LEAST 12 LDS TRCG ONLY W/O I&R CREATINE 15708 [facility] KINASE 7 [facility] [place] [address] [facility] TROPONIN 7 [facility] HOSP QUANTITAT INC INC LILLY OBSERVATI 27139 Sami ROBLES ON/INPATI 7 [place] MAURICIO ENT [facility] HOSPITAL CARE 55 MINUTES CATHETER C1725 [facility] TRANSLUMI 7 [facility]OS[facility] NAL INC INC ANGIOPLAS TY NON-LASER GUIDE C1769 [facility] WIRE 7 [facility]OS[facility] INC INC STENT C1876 [facility] NON-COATE 7 [facility]OS[facility] D/NON-COV INC INC ERED W/DELIVER Y [facility] G0378 [facility] OBSERVATI 7 [facility] HOS[facility] ON INC INC SERVICE PER [place]OUR PRQ [address] [facility] TYRESE TRLUML 7 PHYSICIAN CORONARY S GROUP STENT W/ANGIO ONE ART/BRNCH COLLECTIO 71883 [facility] N VENOUS 7 [facility]OS[facility] BLOOD INC INC VENIPUNCT URE CREATINE 49508 [facility] KINASE MB 7 [facility]OS[facility] FRACTION INC INC ONLY COAGULATI 04950 [facility] ON TIME 7 [facility]OS[facility] ACTIVATED INC INC ECHO 07838 [facility] TTHRC R-T 7 [facility]OS[facility] 2D INC INC W/WOM-MOD E COMPL SPEC&COLR D L HRT 63448 [facility] TYRESE CATH 7 PHYSICIAN W/NJX L S GROUP VENTRICUL OGRAPHY IMG S&I CREATINE 34328 [facility] KINASE MB 7 [facility]OS[facility] FRACTION INC INC ONLY RADIOLOGI 89541 [facility] C EXAM 7 [facility]OS[facility] CHEST 2 INC INC VIEWS FRONTAL&L ATERAL ECG 44216 [facility] WHIPPLE ROUTINE 7 [facility] W/LEAST P 12 LDS I&[place] [address] [facility] TROPONIN 7 [facility]OS[facility] QUANTITAT INC INC LILLY BLOOD 23586 [facility] COUNT 7 [facility]OS[facility] COMPLETE INC INC AUTO&AUTO DIFRNTL WBC COMPREHEN 20541 [facility] SIVE 7 [facility]OS[facility] METABOLIC INC INC PANEL ECG 81430 [facility] ROUTINE 7 [facility] ECG INC INC W/LEAST 12 LDS TRCG ONLY W/O I&R CREATINE 55276 [facility] KINASE 7 [facility] TOTAL INC INC ECG 83624 [facility] ROUTINE 7 [facility] ECG INC INC W/LEAST 12 LDS TRCG ONLY W/O I&R OBSERVATI 17786 Sami Lui ROBLES ON CARE 7 [place] MAURICIO DISCHARGE PSC MANAGEMEN T INITIAL 36245 [facility] 7 PHYSICIAN CARE/DAY S GROUP 70 MINUTES INITIAL 28635 Sami Lui ROBLES OBSERVATI 7 [place] MAURICIO ON PSC CARE/DAY 70 MINUTES PRQ 94406 [facility] TRLUML 7 PHYSICIAN PHYSICIAN CORONARY S GROUP S GROUP STENT W/ANGIO ONE [facility] RAD[facility] [address] [place] [address] MEDICAL MEDICAL EXAMINATI IMAGING IMAGING ON CHEST ASS ASS SINGLE VIEW FRONTAL CT THORAX [address] [place] [address] MEDICAL W/CONTRAS IMAGING T ASS MATERIAL CATH PLMT 53151 [facility] HRT & 7 PHYSICIAN ARTS S GROUP W/NJX & ANGIO IMG S&I UNCLASSIF J3490 [facility] IED DRUGS 6 [facility] INC INC COMPREHEN 99642 [facility] SIVE 6 [facility] [place] [address] G[facility] AMYLASE 6 [facility] INC INC CREATINE 54096 [facility] KINASE MB 6 [facility] FRACTION INC INC ONLY RADEX 60397 [facility] ABDOMEN 6 [facility] COMPL INC INC W/DCBTS&/ ERC VIEWS ECG 22956 [facility] ROUTINE 6 [facility] ECG INC INC W/LEAST 12 LDS TRCG ONLY W/O I&R ECG 94457 [facility] GRACE JR ROUTINE 6 [facility] W/LEAST P 12 LDS I&R ONLY RADIOLOGI 40161 [facility] C EXAM 6 [facility] CHEST 2 INC INC VIEWS FRONTAL&[place] [address] [facility] INFUSION 6 [facility] THERAPY/P INC INC ROPHYLAXI S /DX 1ST TO 1 HR THERAPEUT 51188 [facility] IC 6 [facility] INJECTION INC [place] [address] [facility] TROPONIN 6 [facility] QUANTITAT INC INC LILLY BLOOD 60987 [facility] COUNT 6 [facility] COMPLETE INC INC AUTO&[place] [address] [facility] LIPASE 6 [facility] INC INC CREATINE 87227 [facility] KINASE 6 [facility] TOTAL INC INC RADEX 90951 [facility] RIBS UNI 6 [facility] W/POSTERO INC INC ANT CH MINIMUM 3 VIEWS Encounters Encounter Start End Date Code Location Performer Type Date OFFICE 52282 [facility] 7 7 [facility] T VISIT 5 INC MINUTES [facility]OSPITAL [facility] 7 7 [facility] OUTPATIEN [facility] - 7 7 [facility] OUTPATIEN [facility] T EMERGENCY 64224 [facility] DEPT 7 7 [facility] VISIT INC HIGH SEVERITY& THREAT [facility] - 7 7 [facility] OUTPATIEN [facility] - 7 7 [facility] OUTPATIEN INC T HOSPITAL [facility] - 6 6 [facility] OUTPATIEN [facility] T EMERGENCY 95904 [facility] 6 6 [facility]ISIT HIGH/URGE NT SEVERITY OFFICE 14302 Sami STEINER 6 6 CATALINA LAWLER T VISIT PSC 15 MINUTES HOSPITAL [facility] - 6 6 [facility] OUTPATIEN INC T EMERGENCY 08320 [facility] 6 6 PHYSICIAN U [facility] S, [facility] T VISIT HIGH/URGE NT SEVERITY EMERGENCY 70516 [facility] 6 6 [facility] DEPARTMEN INC T VISIT LOW/MODER SEVERITY
--- OUTSIDE RECORDS SUMMARY | 2017-06-15 11:50 | External Medical Summary Rpt ---
Author Author SUZANNE [place], [employer]NE [employer] Organization [employer] Address Unknown Phone Unavailable Results Activated clotting time in Blood by Coagulation assay Observa Value Referen Units Interpr Notes Date tion ce etation Range Activated 74 - 125 SEC High No Apr 01 clotting alert 2016 time in on in 12:22 PM Blood by source Coagulati data on assay CBC W Auto Differential panel in Blood [...] 0.1 - 1.0 K/mm3 Normal No Mar 312016 [#/volume on [...] - 2.0 % Normal No Mar 18 / informati 2016 5:40 leukocyte on in AM [...] or RESU Plasma LTS CALLED TO: CALIN.BRYCE 03/17/17 194 Arnoldo,[place] nda> 0.5 IS CONSISTEN T WITH MYOCARDIA [...] ng/mL Normal No Mar 17 kinase.MB informati 2017 9:25 on in AM [Mass/vol source ume] [...] Interpr Notes Date ti ce etation Range Basophils 0 - 0.2 K/MM3 Normal No Mar 17 informati 2016 9:25 [#/volume on in AM ] in source Blood by data Automated count Basophils 0.1 - 2.0 % Normal No Mar 17 informati 2017 [...] K/mm3 Normal No Mar 17 evelyne informati 2016 9:25 [#/volume on in AM [...] - 9.3 % Normal No Mar 17 / informati [...]
--- OUTSIDE RECORDS SUMMARY | 2017-06-15 11:50 | External Medical Summary Rpt ---
[...] Plasma LTS CALLED TO: CALIN.BRYCE 03/17/17 194 Arnoldo,[place] nda> 0.5 IS CONSISTEN T WITH MYOCARDIA [...]
--- OUTSIDE RECORDS SUMMARY | 2017-06-15 11:50 | External Medical Summary Rpt | CCD ---
Author Author , SUZANNE Riki SUZANNE Address Unknown Phone [email or web address] Care Team Providers Care Foam Rubber Mixer Name Role Phone A Lui ARNOLD MD PSC, Sami Unavailable Unavailable Lui ARNOLD MD [facility] SARABJIT WHIPPLE Unavailable Unavailable SANTOS, SANTOS Unavailable Unavailable [facility] Unavailable Unavailable INC, [facility] Unavailable Unavailable HOSPITAL P, [facility] P [facility], Unavailable Unavailable [facility] Unavailable Unavailable [facility], [facility] LESLY DWI, LESLY Unavailable Unavailable JR DWI TRAVIS ROBLES Unavailable Unavailable [facility], Unavailable Unavailable PLL[facility], [facility], [facility] TYRESE, TYRESE Unavailable Unavailable CURT ELDRIDGE, Unavailable Unavailable CURT WOLFD, CATALINA Unavailable Unavailable BUCKY Purpose Continuity of Care Document - 02-24-2016 through 2016 Problems Code Diagnosis DOS Provider Status D3709 NEOPLASM 04-13-2017 [facility] V OT INC SPEC SITES ORAL CAV D485 NEOPLASM OF 04-13-2017 [facility] BEHAVIOR OF INC SKIN Z720 TOBACCO USE 04-13-2017 [facility] INC C39197 OTHER LONG 04-13-2017 [facility]M [facility] CURRENT INC DRUG THERAPY E785 HYPERLIPIDE 04-05-2017 [facility] UNSPECIFIED INC I2510 ASHD AMBLER 04-05-2017 [facility]ARY [facility] ARTERY W/O INC ANGINA PECTORIS R42 DIZZINESS 04-05-2017 [facility] GIDDINESS INC I200 UNSTABLE 04-01-2017 [facility] ANGINA PHYSICIANS GROUP I214 NON-ST 04-01-2017 Sami ARNOLD ELEVATION [facility] MYOCARDIAL INFARCTION I237 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 Sami ARNOLD ION ANGINA [facility] [id number] ASHD AMBLER 04-01-2017 [facility] COR ART PHYSICIANS W/UNSTABLE GROUP ANGINA PECTORIS R079 CHEST PAIN 04-01-2017 Sami BARBOZA MD [facility] R072 PRECORDIAL 03-31-2017 [facility] PAIN [facility]IC[facility]ANS, [facility] Z955 PRESENCE OF 03-31-2017 [facility] CORONARY [facility] P IMPLANT & GRAFT R9431 ABNORMAL 03-22-[address] [facility] IOGRAM INC I209 ANGINA 03-17-2017 [facility] PECTORIS PHYSICIANS UNSPECIFIED GROUP [id number] ASHD AMBLER 03-17-2017 [facility] COR ARTREY PHYSICIANS W/UNS GROUP ANGINA PECTORIS J432 CENTRILOBUL 03-17-2017 [facility] R0600 DYSPNEA 03-17-2017 [place] R911 SOLITARY 03-17-2017 [facility] K210 GASTRO-ESOP 05-14-2016 [facility] DISEASE W/ ESOPHAGITIS N200 CALCULUS OF 05-14-2016 [facility] R109 UNSPECIFIED 05-14-2016 [facility] [id number] PAIN IN 05-12-2016 A Lui BAH MD [facility] SHOULDER M778 OTHER 05-12-2016 A Lui ARNOLD ENTHESOPATH PSC IES NOT ELSEWHERE CLASSIFIED [id number] PAIN IN 05-12-2016 A Lui ARNOLD RIGHT FOOT PSC R0789 OTHER CHEST 02-24-2016 [facility] [id number] FRACTURE 02-24-2016 [facility] ONE [facility]IB [facility], RIGHT [...] 55 1- 6- 00 00 SI ve TN 40 20 20 49 DE [place] 01 [...] 08 09 60 30 00 EA Ac [place] 59 -0 -[address] ti [...] 55 2- 1- 00 00 SI ve TN 40 20 20 49 DE [place] 01 17 17 65 5 0 07 PH AR MG MA CY TA BL OF ET CY NT HI AN A IN C Procedures Procedure DOS Code Location Performer Comment ECG 83655 [facility] ROUTINE [address] [facility] ECG INC INC W/LEAST 12 LDS TRCG ONLY W/O I&R CREATINE 98612 [facility] KINASE [address] [facility] [place] [place] [address] [facility] TROPONIN 7 [facility] HOSP QUANTITAT INC INC LILLY OBSERVATI 33094 Sami ROBLES ON/INPATI 7 [place] MAURICIO ENT [facility] HOSPITAL CARE 55 MINUTES CATHETER C1725 [facility] TRANSLUMI 7 [facility]OS[facility] NAL INC INC ANGIOPLAS TY NON-LASER GUIDE C1769 [facility] WIRE 7 [facility]OSP INC INC STENT C1876 [facility] NON-COATE 7 [facility] D/NON-COV INC INC ERED W/DELIVER Y SYSTEM [facility] G0378 [facility] OBSERVATI 7 [facility] HOSP [place]Q [address] [facility] TYRESE TRLUML 7 PHYSICIAN CORONARY S GROUP STENT W/ANGIO ONE ART/BRNCH COLLECTIO 43849 [facility] N VENOUS 7 [facility] HOSP BLOOD INC INC VENIPUNCT URE CREATINE 03144 [facility] KINASE MB 7 [facility] HOSP FRACTION INC INC ONLY COAGULATI 47844 [facility] ON TIME 7 [facility] HOSP ACTIVATED INC INC ECHO 43007 [facility] TTHRC R-T 7 [facility] HOSP 2D INC INC W/WOM-MOD E COMPL SPEC&COLR D L HRT 93826 [facility] TYRESE CATH 7 PHYSICIAN W/NJX L S GROUP VENTRICUL OGRAPHY IMG S&I CREATINE 08241 [facility] KINASE MB 7 [facility]OSP FRACTION INC INC ONLY RADIOLOGI 82180 [facility] C EXAM 7 [facility]OSP CHEST 2 INC INC VIEWS FRONTAL&L ATERAL ECG 60029 [facility] WHIPPLE ROUTINE 7 [facility] W/LEAST P 12 LDS I&[place] [address] [facility] TROPONIN 7 [facility] HOSP QUANTITAT INC INC LILLY BLOOD 39140 [facility] COUNT 7 [facility]OS[facility] COMPLETE INC INC AUTO&AUTO DIFRNTL WBC COMPREHEN 68686 [facility] SIVE 7 [facility] HOSP METABOLIC INC INC PANEL ECG 03922 [facility] ROUTINE 7 [facility] ECG INC INC W/LEAST 12 LDS TRCG ONLY W/O I&R CREATINE 99600 [facility] KINASE 7 [facility] TOTAL INC INC ECG 34711 [facility] ROUTINE 7 [facility] ECG INC INC W/LEAST 12 LDS TRCG ONLY W/O I&R OBSERVATI 01722 Sami Lui ROBLES ON CARE 7 [place] MAURICIO DISCHARGE PSC MANAGEMEN T INITIAL 99514 [facility] 7 PHYSICIAN CARE/DAY S GROUP 70 MINUTES INITIAL 06666 Sami Lui ROBLES OBSERVATI 7 [place] MAURICIO ON PSC CARE/DAY 70 MINUTES PRQ 01549 [facility] TRLUML 7 PHYSICIAN PHYSICIAN CORONARY S GROUP S GROUP STENT W/ANGIO ONE [facility] [address] [place] [address] MEDICAL MEDICAL EXAMINATI IMAGING IMAGING ON CHEST ASS ASS SINGLE VIEW FRONTAL CT THORAX [address] [place] [address] MEDICAL W/CONTRAS IMAGING T ASS MATERIAL CATH PLMT 34659 [facility] HRT & 7 PHYSICIAN ARTS S GROUP W/NJX & ANGIO IMG S&I UNCLASSIF J3490 [facility] IED DRUGS 6 [facility] INC INC COMPREHEN 62287 [facility] SIVE 6 [facility] [place] [address] G[facility] AMYLASE 6 [facility] INC INC CREATINE 70540 [facility] KINASE MB 6 [facility] FRACTION INC INC ONLY RADEX 88571 [facility] ABDOMEN 6 [facility] COMPL INC INC W/DCBTS&/ ERC VIEWS ECG 60059 [facility] ROUTINE 6 [facility] ECG INC INC W/LEAST 12 LDS TRCG ONLY W/O I&R ECG 94916 [facility] GR[facility] JR ROUTINE 6 [facility] W/LEAST P 12 LDS I&R ONLY RADIOLOGI 58863 [facility] C EXAM 6 [facility] CHEST 2 INC INC VIEWS FRONTAL&[place] [address] [facility] INFUSION 6 [facility] THERAPY/P INC INC ROPHYLAXI S /DX 1ST TO 1 HR THERAPEUT 90686 [facility] IC 6 [facility] INJECTION INC [place] [address] [facility] TROPONIN 6 [facility] QUANTITAT INC INC LILLY BLOOD 17898 [facility] COUNT 6 [facility] COMPLETE INC INC AUTO&[place] [address] G[facility] LIPASE 6 [facility] INC INC CREATINE 71448 [facility] KINASE 6 [facility] TOTAL INC INC RADEX 72748 [facility] RIBS UNI 6 [facility] W/POSTERO INC INC ANT CH MINIMUM 3 VIEWS Encounters Encounter Start End Date Code Location Performer Type Date OFFICE 35463 [facility] 7 [facility] T VISIT 5 INC MINUTES [facility]OSPITAL [facility] 7 7 [facility] OUTPATIEN [facility]PITAL [facility] - [address] [facility] T EMERGENCY 82288 [facility] DEPT 7 7 [facility] VISIT INC HIGH SEVERITY& THREAT [facility] - 7 7 [facility] OUTPATIEN [facility] H[facility]PITAL [facility] - 7 7 [facility] OUTPATIEN INC T HOSPITAL [facility] - [address] [facility] T EMERGENCY 71357 [facility] 6 [facility] HIGH/URGE NT SEVERITY OFFICE 21524 Sami STEINER 6 6 CATALINA LAWLER T VISIT PSC 15 MINUTES HOSPITAL [facility] - 6 6 [facility] OUTPATIEN INC T EMERGENCY 53610 [facility] 6 6 PHYSICIAN U [facility] S, [facility] T VISIT HIGH/URGE NT SEVERITY EMERGENCY [id number] [facility] 6 6 [facility] T VISIT LOW/MODER SEVERITY
--- OUTSIDE RECORDS SUMMARY | 2017-06-15 11:50 | External Medical Summary Rpt | CCD ---
Demographics Preferred Language Divehi Marital Status Unknown Orthodoxy Affiliation Unknown Race Unknown Ethnic Group Unknown Author Author , SUZANNE PALACIOS Address Unknown Phone Immunization No patient found.
== END 2017-06-15 11:47 | disposition home or self-care (01) ==
LOC: ER 11:01
DX: M54.2 Cervicalgia (principal); M62.838 Other muscle spasm; I25.10 Atherosclerotic heart disease of native coronary artery without angina pectoris; F17.210 Nicotine dependence, cigarettes, uncomplicated

== ENCOUNTER → 2017-06-15 | Outpatient (CLI) | payer MEDICAID ==
[2017-06-15 12:57] LABS: BILIRUBIN, INDIRECT 0.38 mg/dL (0-0.9)
== END ==
LOC: LAB 10:50
PROVIDERS: Internal Medicine
DX: I11.9 Hypertensive heart disease without heart failure (principal); E78.5 Hyperlipidemia, unspecified; I25.10 Atherosclerotic heart disease of native coronary artery without angina pectoris; Z95.5 Presence of coronary angioplasty implant and graft; R42 Dizziness and giddiness